=== PATIENT | female | born 1995 | race Caucasian/White ===

== ENCOUNTER 2019-04-03 17:49 | Emergency (ER) | payer SELFPAY ==
[2019-04-03 18:29] VITALS: BP 116/70; PULSE 60; RESP 16; TEMP 36.9; O2SAT 99; BMI 16.5
--- NOTE | 2019-04-03 18:40 | ED_ITS ---
Entered by Tevin Ayala LPN, acting as scribe for Christophe Frias DO HPI - Female Genitourinary General: Chief complaint: Urogenital-Female Stated complaint: abd pain/burning when urination Time Seen by Provider: 04/03/19 18:40 Source: patient Mode of arrival: ambulatory Limitations: no limitations History of Present Illness: HPI Narrative: 24 yo female presents with c/o pain and burning with urination that started about one week ago. She has had blood in her urine. She reports pain in the middle of her lower back and her lower abd. She denies fever. She denies n/v/d. No vaginal d/c. PCP- Albina Hines MD elicited complaint: dysuria Onset (ago): week(s) (onset one week ago) Location of symptoms: suprapubic and low back Severity: mild Consistency: constant Vaginal discharge: none Vaginal bleeding: none Urinary symptoms: Hematuria Exacerbating factors: none Relieving factors: none Associated symptoms: Reports abdominal pain; Deny headache(s), nausea or vaginal discharge Date of Last Menstrual Period: 04/01/19 Review of Systems Const: Denies: fever or chills Eyes: Denies: change in vision or blurry vision ENMT: Denies: painful swallowing, swelling of lips/tongue, bleeding gums, dental pain, Change in hearing, nose bleeds, post nasal drip or facial/sinus pain Card: Denies: chest pain, palpitations, irregular heart rhythm, edema, swelling of feet/ankles, shortness of breath on exertion or shortness of breath when lying down Resp: Denies: shortness of breath, productive cough, non-productive cough or wheezing GI: Reports: abdominal pain; Denies: nausea, vomiting, diarrhea, rectal pain, blood in stool or black tarry stool : Reports: painful urination and blood in urine; Denies: urinary frequency, urinary urgency or vaginal discharge Musc: Reports: back pain; Denies: neck pain, redness or joint warmth Skin/Breast: Denies: rash, itching or redness Neuro: Denies: headache, dizziness, vertigo, confusion or seizure-like activity Psych: Denies: anxiety, visual hallucinations or auditory hallucinations PFSH ED PFSH: Statuses (acute, chronic, etc) shown below reflect problem list status as previously entered and may not be historically accurate Social History Smoking and tobacco status: former smoker Female Reproductive History: Date of last menstrual period: 04/01/19 Physical Exam Const: COMMON NORMALS: alert GENERAL APPEARANCE: well developed ORIENTATION/CONSCIOUSNESS: Yes awake, Yes oriented to person, Yes oriented to place and Yes oriented to time HENMT: COMMON NORMALS: normocephalic, external ears normal, external nose normal and moist oral mucous membranes HEAD & SCALP: normocephalic; no scalp tenderness FACE & SINUS: normal facial exam NOSE: external nose normal and no nasal discharge EXTERNAL EAR: Yes external ears normal MOUTH: tongue normal TEETH & GINGIVA: no abnormal tooth and associated gingiva THROAT: posterior oropharynx normal; no peritonsillar mass Eye: COMMON NORMALS: PERRL, EOMs intact bilaterally and conjunctivae normal EYELID: eyelids normal CONJUNCTIVA: Yes conjunctivae normal PUPIL: Yes PERRL Neck/C-Spine: COMMON NORMALS: full ROM GENERAL: No anterior neck swelling and No tracheal deviation CERVICAL SPINE: Yes normal cervical lordosis, No cervical spine tenderness, No step off deformity, No paracervical muscle tenderness and No paracervical muscle spasm Chest: COMMONS NORMALS: inspection of chest normal CHEST: Yes symmetrical chest wall rise and No tenderness Resp: COMMON NORMALS: clear to auscultation bilaterally EFFORT & INSPECTION: No tachypneic, No respiratory distress, No retractions, No uses accessory muscles and No tracheal deviation AUSCULTATION: clear to auscultation bilaterally, no rhonchi, no wheezes and lung sounds not diminished Cardio: COMMON NORMALS: regular rate and regular rhythm RATE: regular rate RHYTHM: regular rhythm HEART SOUNDS: no murmurs PERIPHERAL PULSES: r adial pulses present GI: INSPECTION: No abdominal distension AUSCULTATION: No hyperactive bowel sounds and No hypoactive bowel sounds PALPATION: Yes tender (mild) Details: LLQ, RLQ and other (suprapubic), No guarding and No rigid PERCUSSION: no dullness to percussion and no tympanic to percussion : COMMON NORMALS: Yes no CVA tenderness BLADDER/KIDNEY EXAM: Yes no CVA tenderness Back/Pelvis: COMMON NORMALS: no CVA tenderness PELVIS: Yes no pain with anterior-posterior compression and Yes no pain with lateral compression Neuro: SENSORIUM/ORIENTATION: Yes alert, Yes oriented to person, Yes oriented to place and Yes oriented to time Psych: COMMON NORMALS: mental status grossly normal and speech normal SPEECH: Yes normal speech Skin: COMMON NORMALS: no rashes or lesions noted GENERAL SKIN EXAM: no rashes or lesions noted Course ED course: 24-year-old non female presents with suprapubic pain, back pain, and blood in her urine. Urinalysis shows 2+ protein, and 2+ blood. There is no stone apparent on CT. There is however, thickening and blurring of the bladder wall consistent with cystitis. This is likely a viral hemorrhagic cystitis. She will be treated symptomatically. She will be covered with antibiotics just in case. Vital Signs: Vital signs: Vital Signs Temperature 98.4 F 04/03/19 18:29 Pulse Rate 60 04/03/19 21:36 Respiratory Rate 16 04/03/19 21:36 Blood Pressure 100/66 04/03/19 21:36 Pulse Oximetry 98 04/03/19 21:36 MDM - Female Lab Data: Labs: Lab Results 04/03/19 04/03/19 Range/Units 18:45 18:45 HCG, Qual Negative (Negative) Urine Color Yellow (Yellow) Urine Appearance Hazy A (CLEAR) Urine pH 7 (5-7) Ur Specific Gravit y 1.005 (1.005-1.030) Urine Protein 1+ H (Negative) Urine Glucose (UA) Norm (Normal) Urine Ketones Negative (Negative) Urine Occult Blood 2+ H (Negative) Urine Nitrate Negative (Negative) Urine Bilirubin Neg (NEGATIVE) Urine Urobilinogen Norm (Negative) mg/dL Ur Leukocyte Ijeoma ase Negative (Negative) Urine RBC 5-10 H (0-2) /hpf Urine WBC 25-40 H (0-5) /hpf Ur Squamous Epith Cells 0-4 H (0-5) Urine Bacteria 2+ H (NONE) Urine Mucus 1+ Discharge Plan Discharge Patient Disposition: Home, Self-Care Clinical Impression: Urinary tract infection Qualifiers: Hematuria presence: with hematuria Condition: Stable Prescriptions: New nitrofurantoin monohyd/m-cryst [Macrobid] 100 mg capsule 100 mg PO BID 7 Days Qty: 14 RF: 0 ketorolac 10 mg tablet 10 mg PO TID PRN (Reason: pain) Qty: 10 RF: 0 Discharge Orders: Discharge Order (Routine); Ordered 04/03/19 Ordered By: Christophe Frias Referrals: Manuel Arvizu, [facility] [Primary Care Provider] - Discharge Diet: Usual diet Discharge Activity: Resume usual activity Patient Instructions: Urinary Tract Infection in Women (ED) Activity Restrictions/Additional Instructions: Return for worsening pain despite treatment, fever greater than 100 despite 2-3 doses of antibiotics, worsening blood in the urine with clots, etc. Return for any other concerning symptoms. Discharge Date/Time: 04/03/19 21:38 Coding Level of Care Code ED Car Shifter for Chg Fwd The documentation recorded by the Jamie mccullough Dani Elizabeth, LPN, accurately reflects the service I personally performed and the decisions made by , Christophe Frias DO Apr 03, 2019 17:49
[2019-04-03 19:22] LABS: Add Urine Microscopic? YES; Bilirubin Urine Neg (NEGATIVE); Blood Urine 2+ (Negative); Glucose Urine UA Norm (Normal); Ketones Urine Negative (Negative); Leukocyte Esterase Urine Negative (Negative); Nitrate Urine Negative (Negative); Protein Urine 1+ (Negative); Specific Gravity, Urine 1.005 (1.005-1.030); Urine Appearance Hazy (CLEAR); Urine Color Yellow (Yellow); Urobilinogen Urine Norm (Negative); pH Urine 7 (5-7)
[2019-04-03 19:23] LABS: HCG Qualitative Urine. Negative (Negative)
[2019-04-03 19:30] LABS: Add Urine Culture? Yes; Bacteria Urine 2+; Mucus Urine 1+; Squamous Epithelial Cell Urine 0-4 (0-5); WBC Urine 25-40 /hpf (0-5)
--- NOTE | 2019-04-03 19:48 | CTR_ITS ---
PROCEDURE INFORMATION: Exam: CT Abdomen And Pelvis Without Contrast Exam date and time: 04/03/2019 7:54 PM Age: 24 years old Clinical indication: Abdominal pain; Acute; Patient HX: Gross hematuria, burning urination TECHNIQUE: Imaging protocol: Computed tomography of the abdomen and pelvis without contrast. Total DLP: 502.35 mGy-cm Radiation optimization: All CT scans at this facility use at least one of these dose optimization techniques: automated exposure control; mA and/or kV adjustment per patient size (includes targeted exams where dose is matched to clinical indication); or iterative reconstruction. COMPARISON: CT abdomen pelvis w con* [id number] 04/22/2018 11:51 PM FINDINGS: Lungs: 5 mm noncalcified nodular density in the lower lobe at the left lung base is stable when compared to the prior study. Liver: Normal. No mass. Gallbladder and bile ducts: Normal. No calcified stones. No ductal dilation. Pancreas: Normal. No ductal dilation. Spleen: Normal. No splenomegaly. Adrenals: Normal. No mass. Kidneys and ureters: Normal. No hydronephrosis. Stomach and bowel: Unremarkable. No obstruction. No mucosal thickening. Appendix: A normal appendix is identified. Intraperitoneal space: There is a physiologic amount of free fluid in the pelvis. Vasculature: Unremarkable. No abdominal aortic aneurysm. Lymph nodes: Unremarkable. No enlarged lymph nodes. Bladder: Bladder wall is thickened and ill-defined. There is stranding in the pericystic fat. Reproductive: There is an IUD in the uterus. Bones/joints: Unremarkable. No acute fracture. Soft tissues: Unremarkable. CT/CT kidney stone [id number] IMPRESSION: 1. Bladder wall is thickened and ill-defined. There is stranding in the pericystic fat. Findings are consistent with cystitis. 2. Stable appearance of the 5 mm noncalcified nodular density in the left lower lobe.If patient does not have known cancer, follow up should be based on clinical information because of the low risk of cancer in this age group. (Jeffery et al., Fleischner Society, 2017) Radiation Dose CTDIVOL = (mGy): DLP = 502.35 (mGy-cm)
[2019-04-03 20:42] VITALS: BP 112/75; PULSE 53; RESP 16; O2SAT 99
--- NOTE | 2019-04-03 20:42 | PC.NURSE ---
pt states ' pain lower back, 5 or 6, position change does not make pain go away.'
[2019-04-03] MEDS: nitrofurantoin SR (BID) 100 mg Capsule PO (21:35)
[2019-04-03 21:36] VITALS: BP 100/66; PULSE 60; RESP 16; O2SAT 98
== END 2019-04-03 21:38 | disposition home or self-care (01) ==
PROVIDERS: Emergency Provider Emergency Medicine; Family Provider Nurse Practitioner; PCP Nurse Practitioner
DX: N39.0 Urinary tract infection, site not specified (principal); R31.9 Hematuria, unspecified; Z87.891 Personal history of nicotine dependence
CPT/HCPCS: 74176; 81003; 81025; 87077; 87086; 87186; 99282

== ENCOUNTER → 2019-04-26 16:14 | Outpatient (BNVA) | payer MEDICAID, SELFPAY | PROVIDERS: Family Provider Nurse Practitioner; PCP Nurse Practitioner; Visit Provider Nurse Practitioner Family | DX: Z32.01 Encounter for pregnancy test, result positive (principal) | CPT/HCPCS: 81025 ==

== ENCOUNTER 2019-05-01 11:04 | Emergency (ER) | payer MEDICAID, SELFPAY ==
[2019-05-01 11:22] VITALS: BP 131/61; PULSE 78; RESP 16; TEMP 36.8; O2SAT 99; BMI 17.5
--- NOTE | 2019-05-01 12:40 | ED_ITS ---
HPI - Female Genitourinary General: Chief complaint: Urogenital-Female Stated complaint: PAIN WHEN PEE Time Seen by Provider: 05/01/19 12:40 Source: patient Mode of arrival: ambulatory Limitations: no limitations History of Present Illness: HPI Narrative: Patient comes in with burning on urination for 1 week. Patient reports being evaluated in the urgent care clinic and cleared of any infection. Patient reports that although they told her she did not have a urinary tract infection on Friday she continues to have discomfort with urination. Patient is with her last period being March. Patient appears well. Patient appears in no pain. Date of Last Menstrual Period: 04/01/19 Review of Systems General: Reports: 10 or more systems reviewed and unremarkable except in HPI and below : Reports: painful urination PFSH ED PFSH: Statuses (acute, chronic, etc) shown below reflect problem list status as previously entered and may not be historically accurate Social History Smoking and tobacco status: former smoker Quit status (tobacco): has quit using tobacco Year quit tobacco: 2018 Former quit date comment: Quit age 24. Most smoked 1/2 ppd. Started age 18. Alcohol intake: never Additional social history: well balanced diet Female Reproductive History: Date of last menstrual period: 04/01/19 Para: 2 Spontaneous abortions: Yes (1) Physical Exam Const: COMMON NORMALS: no apparent distress and oriented x3 GENERAL APPEARANCE: cooperative HENMT: COMMON NORMALS: normocephalic, external ears normal, EAC's normal, TM's normal bilaterally and external nose normal HEAD & SCALP: normal to inspection and normocephalic FACE & SINUS: normal facial exam NOSE: external nose normal GENERAL EAR: hearing not grossly impaired EXTERNAL EAR: Yes external ears normal EXTERNAL AUDITORY CANAL: EAC's normal TYMPANIC MEMBRANE: TM's normal bilaterally MOUTH: oral and palatal mucosa normal THROAT: posterior oropharynx normal Eye: COMMON NORMALS: PERRL and EOMs intact bilaterally PUPIL: Yes PERRL Neck/C-Spine: COMMON NORMALS: full ROM and no lymphadenopathy Lymph: LYMPHATIC: no lymphedema noted Chest: COMMONS NORMALS: inspection of chest normal and palpation of chest normal Resp: COMMON NORMALS: normal respiratory effort and clear to auscultation bilaterally AUSCULTATION: clear to auscultation bilaterally Cardio: COMMON NORMALS: regular rate and regular rhythm RATE: regular rate RHYTHM: regular rhythm GI: COMMON NORMALS: normal to inspection, nondistended, normoactive bowel sounds and non-tender : COMMON NORMALS: Yes no CVA tenderness BLADDER/KIDNEY EXAM: Yes no CVA tenderness Back/Pelvis: COMMON NORMALS: no CVA tenderness and thoracic and lumbar spine normal to inspection Extremity: COMMON NORMALS: normal to inspection GENERAL: No edema Neuro: COMMON NORMALS: oriented x3, moves all extremities and no focal motor deficits Psych: COMMON NORMALS: mental status grossly normal and cooperative Skin: COMMON NORMALS: no rashes or lesions noted GENERAL SKIN EXAM: no rashes or lesions noted Course Vital Signs: Vital signs: Vital Signs Temperature 98.2 F 05/01/19 11:22 Pulse Rate 68 05/01/19 14:44 Respiratory Rate 18 05/01/19 14:44 Blood Pressure 106/71 05/01/19 14:44 Pulse Oximetry 99 05/01/19 14:44 MDM - Female MDM Narrative: Medical decision making narrative: Patient comes in with painful urination. Exam notes abdomen soft nontender. No CVA tenderness. Respirations are even lungs are clear to auscultation. Vital signs are stable without fever. Differential diagnosis includes dysuria, urinary tract infection, urethritis, STI, vaginitis. Urine was positive for leukocytes. We will go ahead and treat with Keflex 500 mg twice a day for 7 days. Encourage plenty of fluids and follow-up with primary care in 1 week for recheck. Recommend return to the ER for high fever or new concerns. Lab Data: Labs: Lab Results 05/01/19 Range/Units 11:20 Urine Color Straw (Yellow) Urine Appearance Sl hazy (CLEAR) Urine pH 7 (5-7) Ur Specific Gravit y 1.005 (1.005-1.030) Urine Protein Neg (Negative) Urine Glucose (UA) Norm (Normal) Urine Ketones Negative (Negative) Urine Occult Blood Neg (Negative) Urine Nitrate Negative (Negative) Urine Bilirubin Neg (NEGATIVE) Urine Urobilinogen Norm (Negative) mg/dL Ur Leukocyte Ijeoma ase 1+ H (Negative) Urine RBC 0-4 H (0-2) /hpf Urine WBC 40-55 H (0-5) /hpf Ur Squamous Epith Cells 10-15 H (0-5) Urine Bacteria 1+ H (NONE) Urine Mucus Trace Discharge Plan Discharge Patient Disposition: Home, Self-Care Clinical Impression: Urinary tract infection Qualifiers: Urinary tract infection type: acute cystitis Hematuria presence: without hematuria Qualified Code(s): N30.00 - Acute cystitis without hematuria Condition: Stable Prescriptions: New cephalexin 500 mg capsule 500 mg PO BID 7 Days Qty: 14 RF: 0 Discontinued nitrofurantoin monohyd/m-cryst [Macrobid] 100 mg capsule 100 mg PO BID RF: 0 Discharge Orders: Discharge Order (Routine); Ordered 05/01/19 Ordered By: Eber Gregorio Referrals: Manuel Arvizu, [employer] [facility] [Primary Care Provider] - Discharge Diet: Usual diet Discharge Activity: Resume usual activity Patient Instructions: Urinary Tract Infection in Women (ED) Activity Restrictions/Additional Instructions: Drink plenty of water Medications as directed Follow-up with primary care in three days for recheck Return to ER for high fever or new concerns Discharge Date/Time: 05/01/19 14:45 Coding Level of Care Code ED Professional Services Specialist for Corrinag Fwd Exam Problem Focused
[2019-05-01 13:52] LABS: Add Urine Microscopic? YES; Bilirubin Urine Neg (NEGATIVE); Blood Urine Neg (Negative); Glucose Urine UA Norm (Normal); Ketones Urine Negative (Negative); Leukocyte Esterase Urine 1+ (Negative); Nitrate Urine Negative (Negative); Protein Urine Neg (Negative); Specific Gravity, Urine 1.005 (1.005-1.030); Urine Appearance SL Hazy (CLEAR); Urine Color Straw (Yellow); Urobilinogen Urine Norm (Negative); pH Urine 7 (5-7)
[2019-05-01 13:55] LABS: Mucus Urine TRACE
[2019-05-01 13:56] LABS: Bacteria Urine 1+; RBC Urine 0-4 /hpf (0-2)
[2019-05-01 13:57] LABS: Add Urine Culture? Yes; WBC Urine 40-55 /hpf (0-5)
[2019-05-01 14:44] VITALS: BP 106/71; PULSE 68; RESP 18; O2SAT 99
== END 2019-05-01 14:45 | disposition home or self-care (01) ==
PROVIDERS: Emergency Provider Nurse Practitioner Family; Family Provider Nurse Practitioner; PCP Nurse Practitioner
DX: N30.00 Acute cystitis without hematuria (principal); Z87.891 Personal history of nicotine dependence
CPT/HCPCS: 81001; 87077; 87086; 87186; 99282; A9270

== ENCOUNTER 2019-07-03 10:34 | Emergency (ER) | payer MEDICAID, SELFPAY ==
--- NOTE | 2019-07-03 10:38 | ED_ITS ---
HPI - General: Chief complaint: OB/Uterine Contractions Stated complaint: 13 WEEKS PREG WITH CRAMPING Time Seen by Provider: 07/03/19 10:38 Source: patient Mode of arrival: ambulatory Limitations: no limitations History of Present Illness: HPI Narrative: Patient is a 24-year-old female Ab1 female here at approximately 14 weeks gestation complaining of blood-ting ed discharge that she noticed this morning. Patient reports some abdominal cramping beginning yesterday but states upon arrival this is actually improved. Patient states she has had a lot of discharge over the past 6 weeks. She denies new sexual partners or concern for STDs. She remembers having lots of discharge on previous pregnancies. She has not had any vaginal itching. She contacted her OB office (Dr. Yanes) a few days ago thinking she might have a yeast infection and was told to begin Monistat cream. Patient has not been running fevers. No nausea/vomiting. MD Complaint: vaginal bleeding and vaginal discharge Vaginal bleeding: light Date of Last Menstrual Period: 04/01/19 Patient : Yes Associated symptoms: Reports vaginal discharge; Deny abdominal pain, dysuria, headache(s), malaise, nausea, syncope or vomiting Review of Systems Const: Denies: fever, chills, body aches, fatigue or malaise Card: Denies: chest pain, palpitations, irregular heart rhythm, edema, swelling of feet/ankles, lightheadedness, syncope, pre-syncope, shortness of breath on exertion or shortness of breath when lying down Resp: Denies: shortness of breath, productive cough, coughing up blood or chest congestion GI: Denies: abdominal pain, nausea, vomiting, diarrhea or constipation : Reports: vaginal bleeding (blood tinged discharge) and vaginal discharge; Denies: flank pain, difficulty urinating, painful urination, urinary frequency, urinary urgency, urinary hesitancy, blood in urine, genital lesion, genital itching, vaginal odor or pelvic pain Musc: Denies: neck pain or back pain Skin/Breast: Denies: rash Neuro: Denies: headache, numbness in extremities, weakness in extremities or changes in sensation PFSH ED PFSH: Social History Smoking and tobacco status: former smoker Quit status (tobacco): has quit using tobacco Year quit tobacco: 2019 Former quit date comment: Quit age 24. Most smoked 1/2 ppd. Started age 18. Alcohol intake: never Additional social history: well balanced diet Female Reproductive History: Date of last menstrual period: 04/01/19 Para: 2 Spontaneous abortions: Yes (1) Physical Exam Const: COMMON NORMALS: no apparent distress, average body habitus, oriented x3, no limitations, healthy appearing, alert and well nourished Resp: COMMON NORMALS: normal respiratory effort and clear to auscultation bilaterally AUSCULTATION: clear to auscultation bilaterally Cardio: COMMON NORMALS: regular rate and regular rhythm RATE: regular rate RHYTHM: regular rhythm GI: COMMON NORMALS: normal to inspection, nondistended, normoactive bowel sounds, soft to palpation, non-tender, no hepatosplenomegaly and no masses PALPATION: Yes soft and Yes no hepatosplenomegaly OTHER: gravid uterus : COMMON NORMALS: Yes no CVA tenderness and Yes bimanual exam normal BLADDER/KIDNEY EXAM: Yes no CVA tenderness EXTERNAL FEMALE EXAM: Yes normal appearance of the urethra SPECULUM EXAM - VAGINA: Yes vaginal discharge (moderate amount; non odorous; cervix is not erythematous or friable ) Vaginal discharge present: white and other (brown) SPECULUM EXAM - CERVIX: Yes cervical os closed and No cervical tenderness BIMANUAL EXAM - VAGINA & UTERUS: Yes normal bimanual exam, No cervical tenderness and Yes uterine size normal Back/Pelvis: COMMON NORMALS: no CVA tenderness Neuro: COMMON NORMALS: oriented x3 SENSORIUM/ORIENTATION: Yes alert Course Vital Signs: Vital signs: Vital Signs Temperature 98.2 F 07/03/19 10:41 Pulse Rate 90 07/03/19 12:00 Respiratory Rate 16 07/03/19 10:41 Blood Pressure 115/72 07/03/19 12:00 Pulse Oximetry 99 07/03/19 12:00 MDM - OB/Uterine Contractions MDM Narrative: Medical decision making narrative: pts US showing live IUP at 14 wks; she has no cervicitis on her exam; does have some yeast on her wet prep along with white discharge so we will have her continue the Monistat for a full treatment course; recommend she follow up with OB for further instructions Lab Data: Labs: Lab Results 04/11/20 04/11/20 04/11/20 Range/Units 11:06 11:06 11:06 WBC 10.9 H (4.0-10.0) 10^3/ uL RBC 4.57 (4.1-5.3) 10^6/u L Hgb 13.3 (11.5-15.3) g/dL Hct 39.0 (37.0-47.0) % MCV 85.3 (81-99) fL MCH 29.1 (28.0-34.0) pg MCHC 34.1 (30.0-36.0) g/dL RDW 12.7 (12.1-15.1) % Plt Count 268 (130-400) 10^3/c mm MPV 10.7 H (7.4-10.4) fL Neut % (Auto) 78.3 % Lymph % (Auto) 16.0 % [place] % (Auto) 3.7 % Eos % (Auto) 1.2 % Baso % (Auto) 0.5 % Neut # (Auto) 8.5 H (1.8-7.7) 10^3/u L Lymph # (Auto) 1.7 (0.8-4.8) 10^3/u L [place] # (Auto) 0.4 (0.2-0.9) 10^3/u L Eos # (Auto) 0.1 (0.0-0.8) 10^3/u L Baso # (Auto) 0.1 (0.0-0.1) 10^3/u L Nucleated RBC % (a uto) 0 % Nucleated RBCs # 0.0 /100WBC Sodium 132 L (136-145) mmol/L Potassium 3.7 (3.5-5.1) mmol/L Chloride 100 (98-107) mmol/L Carbon Dioxide 22 (22-29) mmol/L Anion Gap 13.7 (5-19) BUN 6 (6-20) mg/dL Creatinine 0.4 L (0.5-0.9) mg/dL GFR Calculation 196.1 H (90-130) mL/min Glucose 108 (65-115) mg/dL Calculated Osmolal ity 270 L (285-295) mOsm/k g Calcium 10.0 (8.5-10.5) mg/dL Total Bilirubin 0.4 (0.15-1.2) mg/dL AST 17 (0-32) U/L ALT 14 (0-33) U/L Alkaline Phosphata se 51 (35-105) IU/L Total Protein 7.1 (6.6-8.7) g/dL Albumin 4.1 (3.5-5.2) g/dL Globulin 3.0 (1.3-4.6) g/dL Ser , [place] 85[address].00 mIU/mL Urine Color (Yellow) Urine Appearance (CLEAR) Urine pH (5-7) Ur Specific Gravit y (1.005-1.030) Urine Protein (Negative) Urine Glucose (UA) (Normal) Urine Ketones (Negative) Urine Blood (Negative) Urine Nitrate (Negative) Urine Bilirubin (NEGATIVE) Prot Sulfosalicyli c Acd (Negative) Urine Urobilinogen (Negative) mg/dL Ur Leukocyte [place]jeoma ase (Negative) Urine RBC (0-2) /hpf Urine WBC (0-5) /hpf Ur Squamous Epith Cells (0-5) Amorphous Sediment Urine Bacteria (NONE) Blood Type A Positive Rho(D) Type Positive 07/03/19 Range/Units 12:02 WBC (4.0-10.0) 10^3/ uL RBC (4.1-5.3) 10^6/u L Hgb (11.5-15.3) g/dL Hct (37.0-47.0) % MCV (81-99) fL MCH (28.0-34.0) pg MCHC (30.0-36.0) g/dL RDW (12.1-15.1) % Plt Count (130-400) 10^3/c mm MPV (7.4-10.4) fL Neut % (Auto) % Lymph % (Auto) % [place] % (Auto) % Eos % (Auto) % Baso % (Auto) % Neut # (Auto) (1.8-7.7) 10^3/u L Lymph # (Auto) (0.8-4.8) 10^3/u L [place] # (Auto) (0.2-0.9) 10^3/u L Eos # (Auto) (0.0-0.8) 10^3/u L Baso # (Auto) (0.0-0.1) 10^3/u L Nucleated RBC % (a uto) % Nucleated RBCs # /100WBC Sodium (136-145) mmol/L Potassium (3.5-5.1) mmol/L Chloride (98-107) mmol/L Carbon Dioxide (22-29) mmol/L Anion Gap (5-19) BUN (6-20) mg/dL Creatinine (0.5-0.9) mg/dL GFR Calculation (90-130) mL/min Glucose (65-115) mg/dL Calculated Osmolal ity (285-295) mOsm/k g Calcium (8.5-10.5) mg/dL Total Bilirubin (0.15-1.2) mg/dL AST (0-32) U/L ALT (0-33) U/L Alkaline Phosphata se (35-105) IU/L Total Protein (6.6-8.7) g/dL Albumin (3.5-5.2) g/dL Globulin (1.3-4.6) g/dL Ser , Alex i-Qnt mIU/mL Urine Color Yellow (Yellow) Urine Appearance Hazy A (CLEAR) Urine pH 8 H (5-7) Ur Specific Gravit y 1.015 (1.005-1.030) Urine Protein Neg (Negative) Urine Glucose (UA) Norm (Normal) Urine Ketones Negative (Negative) Urine Blood Neg (Negative) Urine Nitrate Negative (Negative) Urine Bilirubin Neg (NEGATIVE) Prot Sulfosalicyli c Acd Negative (Negative) Urine Urobilinogen Norm (Negative) mg/dL Ur Leukocyte Ijeoma ase Negative (Negative) Urine RBC None (0-2) /hpf Urine WBC Rare (0-5) /hpf Ur Squamous Epith Cells 0-4 H (0-5) Amorphous Sediment 2+ Urine Bacteria Trace (NONE) Blood Type Rho(D) Type Imaging Data^: US OB: Radiologist's impression: [address] [address] Ultrasound Report Signed Patient: Monica Quezada Unit #: [id number] : [id number] Age/Sex: 24 / F ADM Date: 07/03/19 Loc: ER Room/Bed: Attending Dr: Ordering Provider/Ordering MD: Blanca Fermin Date of Service: 07/03/19 Procedure(s): US OB <= 14 weeks fetus [id number] Accession Number(s): [id number] Report Number: [id number] PROCEDURE INFORMATION: Exam: US First Trimester, Transabdominal and US , Transvaginal Exam date and time: 07/03/2019 11:21 AM Age: 24 years old Clinical indication: complicated by abdominal or pelvic pain; Left lower quadrant; First trimester; Gestational age or lmp: 13 weeks 3 days by lmp; ; Additional info: Bleeding/cramping TECHNIQUE: Imaging protocol: Real-time transabdominal obstetrical ultrasound of the maternal pelvis and a first trimester , less than 14 weeks 0 days, with image documentation. Transvaginal imaging was used for better evaluation of the fetus and adnexa. COMPARISON: [facility] Limited [id number] 02/08/2016 10:17 PM FINDINGS: GESTATION: Gestation: Single live intrauterine gestation. Heart rate: heart rate: 150 bpm. Placenta: Unremarkable. No subchorionic bleed. Amniotic fluid: Amniotic is normal for gestational age. BIOMETRY: Estimated gestational age: Single live intrauterine gestation with the estimated gestational age of approximately 14 weeks by ultrasound. Estimated due date: Estimated due date 01-01-20. MATERNAL: Uterus: Uterus 12.9 x 7.2 x 10.2 cm. Cervix: Cervix appears unremarkable Right adnexa: Unremarkable. Left adnexa: Unremarkable. Intraperitoneal: No free fluid Other findings: Right and left ovaries not visualized US/US OB <= 14 weeks fetus [id number] IMPRESSION: 1. Single live intrauterine gestation with the estimated gestational age of approximately 14 weeks by ultrasound. 2. heart rate: 150 bpm. Dictated By: Juanjo Jarvis MD Signed By: Juanjo Jarvis MD Signed Date/Time: 07/03/19 1138 DD/ 1136 Discharge Plan Discharge Patient Disposition: Home, Self-Care Clinical Impression: Vaginal yeast infection Condition: Stable Prescriptions: No Action prenat.vits,viji,ibd-xouy-zugak Tablet 1 tab PO DAILY RF: 0 Discharge Orders: Discharge Order (Routine); Ordered 07/03/19 Ordered By: Blanca Fermin Referrals: Manuel Arvizu, [facility] C[facility] PASTOR-C [Primary Care Provider] - Patient Instructions: Vulvovaginal Candidiasis (ED), Yeast Infection Activity Restrictions/Additional Instructions: As discussed continue the Monistat treatment course until finished. Please fol low-up with your OB provider for further instructions if discharge does not begin to improve. Coding Level of Care Code ED Brass Molder for Corrinag Fwd Exam Detailed
[2019-07-03 10:41] VITALS: BP 155/74; PULSE 95; RESP 16; TEMP 36.8; O2SAT 100; BMI 16.8
--- NOTE | 2019-07-03 10:48 | USR_ITS ---
PROCEDURE INFORMATION: Exam: US First Trimester, Transabdominal and US , Transvaginal Exam date and time: 07/03/2019 11:21 AM Age: 24 years old Clinical indication: complicated by abdominal or pelvic pain; Left lower quadrant; First trimester; Gestational age or lmp: 13 weeks 3 days by lmp; ; Additional info: Bleeding/cramping TECHNIQUE: Imaging protocol: Real-time transabdominal obstetrical ultrasound of the maternal pelvis and a first trimester , less than 14 weeks 0 days, with image documentation. Transvaginal imaging was used for better evaluation of the fetus and adnexa. COMPARISON: [facility] Limited [id number] 02/08/2016 10:17 PM FINDINGS: GESTATION: Gestation: Single live intrauterine gestation. Heart rate: heart rate: 150 bpm. Placenta: Unremarkable. No subchorionic bleed. Amniotic fluid: Amniotic is normal for gestational age. BIOMETRY: Estimated gestational age: Single live intrauterine gestation with the estimated gestational age of approximately 14 weeks by ultrasound. Estimated due date: Estimated due date 01-01-20. MATERNAL: Uterus: Uterus 12.9 x 7.2 x 10.2 cm. Cervix: Cervix appears unremarkable Right adnexa: Unremarkable. Left adnexa: Unremarkable. Intraperitoneal: No free fluid Other findings: Right and left ovaries not visualized US/US OB <= 14 weeks fetus [id number] IMPRESSION: 1. Single live intrauterine gestation with the estimated gestational age of approximately 14 weeks by ultrasound. 2. heart rate: 150 bpm.
[2019-07-03 11:06] VITALS: O2SAT 99
--- NOTE | 2019-07-03 11:08 | PC.NURSE ---
portable ultrasound at bedside
[2019-07-03 11:13] LABS: Basophils # 0.1 10^3/uL (0.0-0.1); Basophils % 0.5 %; Eosinophils # 0.1 10^3/uL (0.0-0.8); Eosinophils % 1.2 %; Hemoglobin 13.3 g/dL (11.5-15.3); Lymphocytes # 1.7 10^3/uL (0.8-4.8); Mean Corpuscular HGB Conc 34.1 g/dL (30.0-36.0); Mean Corpuscular Hemoglobin 29.1 pg (28.0-34.0); Mean Corpuscular Volume 85.3 fL (81-99); Mean Platelet Volume 10.7 fL (7.4-10.4); Monocytes # 0.4 10^3/uL (0.2-0.9); Monocytes % 3.7 %; Neutrophils # 8.5 10^3/uL (1.8-7.7); Neutrophils % 78.3 %; Nucleated Red Blood Cells % 0 %; Platelet Count 268 10^3/cmm (130-400); Red Blood Count 4.57 10^6/uL (4.1-5.3); Red Cell Distribution Width 12.7 % (12.1-15.1); White Blood Count 10.9 10^3/uL (4.0-10.0)
[2019-07-03 11:49] LABS: Alanine Aminotransferase 14 U/L (0-33); Albumin Level 4.1 g/dL (3.5-5.2); Alkaline Phosphatase 51 IU/L (35-105); Anion Gap 13.7 (5-19); Aspartate Amino Transferase 17 U/L (0-32); Blood Urea Nitrogen 6 mg/dL (6-20); Carbon Dioxide 22 mmol/L (22-29); Chloride 100 mmol/L (98-107); Glomerular Filtration Rate 196.1 mL/min (90-130); Glucose 108 mg/dL (65-115); Osmolality Calculated 270 mOsm/kg (285-295); Potassium 3.7 mmol/L (3.5-5.1); Sodium 132 mmol/L (136-145); Total Bilirubin 0.4 mg/dL (0.15-1.2); Total Protein 7.1 g/dL (6.6-8.7)
[2019-07-03 12:00] VITALS: BP 115/72; PULSE 90; O2SAT 99
[2019-07-03 12:31] LABS: Add Urine Microscopic? YES; Amorphous Sediment Urine 2+; Bacteria Urine TRACE; Bilirubin Urine Neg (NEGATIVE); Blood Urine Neg (Negative); Glucose Urine UA Norm (Normal); Ketones Urine Negative (Negative); Leukocyte Esterase Urine Negative (Negative); Nitrate Urine Negative (Negative); Protein Urine Neg (Negative); Specific Gravity, Urine 1.015 (1.005-1.030); Squamous Epithelial Cell Urine 0-4 (0-5); Sulfosalicylic Acid Urine Negative (Negative); Urine Appearance Hazy (CLEAR); Urine Color Yellow (Yellow); Urobilinogen Urine Norm (Negative); WBC Urine RARE /hpf (0-5); pH Urine 8 (5-7)
[2019-07-03 12:32] LABS: Add Urine Culture? No
[2019-07-03 14:01] VITALS: BP 140/69; PULSE 88; RESP 16; O2SAT 100
== END 2019-07-03 14:01 | disposition home or self-care (01) ==
PROVIDERS: Emergency Provider Physician Assistant; Family Provider Nurse Practitioner; PCP Nurse Practitioner
DX: O98.811 Other maternal infectious and parasitic diseases complicating pregnancy, first trimester (principal); Z3A.13 13 weeks gestation of pregnancy; B37.3 Candidiasis of vulva and vagina
CPT/HCPCS: 12345; 36415; 76801; 80053; 81001; 84702; 85025; 86900; 87210; 87491; 87591; 87661; 99283; A9270

== ENCOUNTER 2019-11-29 19:20 | Outpatient (CLI) | payer MEDICAID, SELFPAY ==
[2019-11-29 19:40] VITALS: TEMP 36.9
[2019-11-29 20:20] VITALS: BMI 22.4
[2019-11-29 20:56] LABS: Add Urine Microscopic? YES; Bilirubin Urine Neg (NEGATIVE); Blood Urine Neg (Negative); Glucose Urine UA Norm (Normal); Ketones Urine Negative (Negative); Leukocyte Esterase Urine 2+ (Negative); Nitrate Urine Negative (Negative); Protein Urine Neg (Negative); Urine Color Yellow (Yellow); Urobilinogen Urine 1 mg/dL (Negative); pH Urine 7 (5-7)
[2019-11-29 20:57] LABS: RBC Urine 0-4 /hpf (0-2)
[2019-11-29 20:58] LABS: Add Urine Culture? No; Bacteria Urine TRACE; Mucus Urine 2+; Squamous Epithelial Cell Urine TOO NUMEROUS TO CNT (0-5); WBC Urine 15-25 /hpf (0-5)
[2019-11-29 21:00] VITALS: BP 109/60; RESP 16; TEMP 36.6
[2019-11-29 21:03] VITALS: BP 109/60; PULSE 69
[2019-11-29 21:05] VITALS: BP 109/60; PULSE 69
== END 2019-11-29 21:08 | disposition home or self-care (01) ==
LOC: OPOB 20:16 → OBGYN 21:05
PROVIDERS: PCP Nurse Practitioner; Visit Provider Family Medicine
DX: O26.899 Other specified pregnancy related conditions, unspecified trimester (principal); R42 Dizziness and giddiness; R10.2 Pelvic and perineal pain; Z3A.00 Weeks of gestation of pregnancy not specified
CPT/HCPCS: 59025; 81001; 99211

== ENCOUNTER → 2019-12-28 16:08 | Outpatient (BNVA) | payer MEDICAID, SELFPAY | PROVIDERS: PCP Nurse Practitioner; Visit Provider Nurse Practitioner Family | DX: Z11.59 Encounter for screening for other viral diseases (principal); Z20.828 Contact with and (suspected) exposure to other viral communicable diseases | CPT/HCPCS: 87635 ==

== ENCOUNTER 2020-01-03 03:37 | Inpatient (IN) | payer MEDICAID, SELFPAY ==
[2020-01-03] VITALS (165 sets, daily range): BP systolic 0–150; BP diastolic 0–98; PULSE 66–141; RESP 16–19; TEMP 36.7–37.4; O2SAT 88–100; BMI 23.0
[2020-01-03] MEDS: lactated ringers 1,000 ML 999 ML IV (04:10)
[2020-01-03] MEDS: fentaNYL 50 mcg/mL INJ 2mL IV (04:28)
[2020-01-03 04:33] LABS: Basophils # 0.1 10^3/uL (0.0-0.1); Basophils % 0.4 %; Eosinophils # 0.1 10^3/uL (0.0-0.8); Eosinophils % 0.9 %; Hematocrit 39.6 % (37.0-47.0); Hemoglobin 13.3 g/dL (11.5-15.3); Lymphocytes # 2.6 10^3/uL (0.8-4.8); Lymphocytes % 17.9 %; Mean Corpuscular HGB Conc 33.6 g/dL (30.0-36.0); Mean Corpuscular Hemoglobin 29.6 pg (28.0-34.0); Mean Corpuscular Volume 88.2 fL (81-99); Mean Platelet Volume 11.9 fL (7.4-10.4); Monocytes # 0.8 10^3/uL (0.2-0.9); Monocytes % 5.7 %; Neutrophils % 74.7 %; Nucleated Red Blood Cells % 0 %; Platelet Count 306 10^3/cmm (130-400); Red Blood Count 4.49 10^6/uL (4.1-5.3); Red Cell Distribution Width 13.2 % (12.1-15.1); White Blood Count 14.7 10^3/uL (4.0-10.0)
--- NOTE | 2020-01-03 05:40 | P.ANESASSM_ITS ---
Pre-Anesthetic Assessment Pre-Anesthetic Assessment: Height/Weight: Height 1.57 m Weight 57.153 kg Pulse Resp BP Pulse Ox 79 16 121/71 97 01/03/20 05:38 01/03/20 04:28 01/03/20 05:38 01/03/20 05:38 Preop Diagnosis: IUP Proposed Procedure: Lumbar Labor Epidural Was Beta Chika taken within 24 hours: N/A Social: Social History: No alcohol and No tobacco Exam: Pre-Anes Outpt Exam: alert, oriented x 3, clear to auscultation bilaterally and regular rate & rhythm Airway: Submandibular: WNL Cervical ROM: WNL MP: 2 History/ROS: No significant history except as noted and No significant complaints Pulmonary: Pulmonary: None reported CV/HEM: CV/HEM: None reported : : None reported Hepatic: Hepatic: None reported GI: GI: GERD Metabolic: Metabolic: None reported Musc/skel: Musc/skel: None reported Neuropsych: Neuropsych: None reported Anesthetic Plan: ASA status: 2 Anesthesia: Regional (specify below) (epidural) Meds/Allergies Current Medications: Current Medications Generic Name Dose Route Start Last Admin Trade Name Freq PRN Reason Stop Dose Admin Fentanyl 25 - 100 mcg 01/03/20 03:10 01/03/20 04:28 Sublimaze IV 25 mcg Q1H PRN Administration SEVERE PAIN Ropivacaine 200 mg in 100 mls @ 6 mls/hr 01/03/20 03:15 01/03/20 05:30 Naropin Premix EPIDURAL 6 mls/hr .[id number] CRYS Administration Lactated Ringer's 1,000 mls @ 999 m ls/hr 01/03/20 04:12 01/03/20 04:10 Lactated Ringers IV 999 mls/hr .Q1H1M PRN Administration See label comment s PFSH Anesthesia PFSH: Medical History Depression with anxiety Family History Grandmother Diabetes maternal Breast cancer maternal Father Hypercholesteremia Social History Smoking and tobacco status: former smoker Quit status (tobacco): has quit using tobacco Year quit tobacco: 2019 Former quit date comment: Quit age 24. Most smoked 1/2 ppd. Started age 18. Alcohol intake: never Additional social history: well balanced diet Female Reproductive History: Date of last menstrual period: 03/31/19 : 3 Para: 2 Spontaneous abortions: Yes (1) Data Anesthesia CBC & Chem 7: 01/03/20 03:25 Other Labs: Laboratory Results - last 48 hr 01/03/20 03:25 WBC 14.7 H RBC 4.49 Hgb 13.3 Hct 39.6 MCV 88.2 MCH 29.6 MCHC 33.6 RDW 13.2 Plt Count 306 MPV 11.9 H Neut % (Auto) 74.7 Lymph % (Auto) 17.9 [place] % (Auto) 5.7 Eos % (Auto) 0.9 Baso % (Auto) 0.4 Neut # (Auto) 11.00 H Lymph # (Auto) 2.6 [place] # (Auto) 0.8 Eos # (Auto) 0.1 Baso # (Auto) 0.1 Nucleated RBC % (auto) 0 Nucleated RBCs # 0.0 Cardiac Studies: No Data to Display Anesthesia Procedures Epidural: Time Out Performed: Yes Consents Signed: Procedure Consent Consent: from patient, risks and benefits reviewed and patient agrees to proceed Lumbar Level: L3-L4 Epidural position: sitting Epidural procedure: sterile prep of area, 1% lidocaine to numb the area (5), 18 g needle, negative for paresthesia passed, neg for paresthesia, test dose given, 1.5% xylocaine 1:200k epi (5), 0.2% Ropivacaine bolus ml (5), placed PCEA (5cc q10min x 3), no systemic response, sterile dressing applied, L.U.D. no apparent complications and 0.2% Ropiavacaine @ mls/hr (11) Additional Comments: Called to OB for epidural placement, pt evaluated and assessed for placement and explained procedure. Labs reviewed. Pt agrees to proceed. placed to 5cm in space and tolerated well. Bolused with epidural pump and VSS throughout per nursing chart. Last BP 104/70. Pain much improved.
[2020-01-03] MEDS: dextrose 5%-lactated ringers 1,000 ML 125 ML IV ×2 (05:58→13:37)
[2020-01-03] MEDS: ondansetron 2 mg/ML SDV 2 mL 4 MG IVP (07:40)
--- NOTE | 2020-01-03 17:06 | PM.DELIVERY ---
Delivery Note: Date of delivery: January 03, 2020 Pre-Delivery Course: The patient is a 24-year-old 3 who presented to the hospital in active labor. An amniotomy was performed. She then progressed to complete and was able to labor down prior to pushing. The baby's head was at a +1 to +2 station at the time of pushing was initiated. heart tones were generally category 1 with occasional category 2 tracings during her labor process. Her been unremarkable. Her labs have been unremarkable. Her GBS was negative. Her glucose screen was negative. Her blood type is a positive. The remainder of her labs were within normal limits. Delivery: DELIVERY: The patient progressed to complete without difficulty. She delivered a female with a weight of 7 pounds 0 ounces with Apgars of 8, 9. The baby was delivered from the DEMETRI position. The baby's mouth and nose were suctioned at the site of the perineum. The baby was then completely delivered and placed on the mother's abdomen. The cord was then clamped and cut. There was a nuchal cord x1 which was delivered over the body. Moderate meconium was noted. The placenta and 3 vessel cord were delivered intact shortly thereafter. The perineum and vaginal vault were carefully examined. A first-degree a posterior midline laceration which extended onto the skin of the perineum was noted. It was repaired with 3-0 Vicryl in the usual fashion.. Both the mother and the baby were in stable condition. Post-Delivery Status: Stable A&P Assessment and plan (1) 39 weeks gestation of : Status: Acute (2) Spontaneous vaginal delivery: Status: Acute Coding Level of Care Code Acute Firewall Administrator for Chg Fwd Diagnoses 39 weeks gestation of Z3A.39 Spontaneous vaginal delivery O80
[2020-01-03] MEDS: HYDROcodone-acetaminophen 5-325 mg Tablet PO (20:07)
[2020-01-03] MEDS: ibuprofen 800 mg tablet PO (20:08)
[2020-01-04] VITALS (7 sets, daily range): BP systolic 99–126; BP diastolic 62–83; PULSE 76–89; RESP 16–19; TEMP 36.5–36.8; O2SAT 97–98
[2020-01-04] MEDS: HYDROcodone-acetaminophen 5-325 mg Tablet PO (05:33)
[2020-01-04 07:04] LABS: Hematocrit 35.9 % (37.0-47.0); Hemoglobin 12.1 g/dL (11.5-15.3); Mean Corpuscular HGB Conc 33.7 g/dL (30.0-36.0); Mean Corpuscular Volume 88.9 fL (81-99); Mean Platelet Volume 11.6 fL (7.4-10.4); Platelet Count 278 10^3/cmm (130-400); Red Blood Count 4.04 10^6/uL (4.1-5.3); Red Cell Distribution Width 13.3 % (12.1-15.1); White Blood Count 26.2 10^3/uL (4.0-10.0)
--- NOTE | 2020-01-04 07:54 | ANE.PACU2 ---
Inpatient post-anesthesia follow up: Airway intact: Yes Vital signs: Temperature 98.1 F Pulse Rate 80 Respiratory Rate 19 Blood Pressure 104/64 Pulse Oximetry 97 Oxygen Delivery Me thod Room Air Oxygen Flow Rate Fraction of Inspir ed Oxygen Hydration adequate: Yes Nausea and vomiting: No Pain level: 1 Mental status: Baseline Additional Comments: no headaches, no weakness/numbness in legs, urinating without shukla. NO signs of infection at epidural site
[2020-01-04] MEDS: ibuprofen 800 mg tablet PO ×2 (08:32→14:26)
[2020-01-04] MEDS: docusate sodium 100 mg Capsule PO (08:32)
[2020-01-04] MEDS: prenatal vitamin Capsule 1 CAP PO (08:32)
--- NOTE | 2020-01-04 09:25 | PC.NURSE ---
Mom was taking a shower & dad was holding baby
--- NOTE | 2020-01-04 17:35 | P.DS_ITS ---
Discharge Providers SEMICONDUCTOR TECHNICIAN Date of Admission: 01/03/20 03:37 Date of Discharge: 01/04/20 Attending Provider at Admission: Natalio Yanes MD Attending Provider at Discharge: Natalio Yanes MD Primary Care Provider: JOSE L Fabian Diagnoses at Discharge Discharge Diagnosis (1) 39 weeks gestation of : Status: Acute (2) Spontaneous vaginal delivery: Status: Acute Reason for Visit Reason for Visit: Contractions Hospital Course Hospital Course: The patient presented to the hospital in active labor. An amniotomy was performed. The patient progressed to complete and had an unremarkable delivery of a healthy-appearing 40-week female infant. Her course was unremarkable except for labial swelling that resulted in difficulty urinating. She had to be straight cathed several times, but as her labial swelling improved, she is able to urinate without difficulty several times before being discharged. She bottle-fed her baby. Her bleeding was within normal limits. Her pain was well controlled. There were no other concerns. Information Peripartum Data: Delivery Method: Vaginal Physical Exam Narrative: EXAM NARRATIVE: The patient is alert. She appears comfortable. Her heart has a regular rate and rhythm with no murmurs appreciated. Lungs are clear to auscultation bilaterally. Her fundus is firm and below the umbilicus. Urinary Catheter Management^: Lassiter: Cath Placed During This Visit: yes Reason for Continuing Indwelling Catheter: Required Immobilization for Trauma or Surgery or Anesthesia Urinary Catheter Date of Insertion: 01/03/20 Urinary Catheter Time of Insertion: 06:00 Discharge Data Data Completed and Pending: Labs from last 24 hours 01/04/20 05:45 WBC 26.2 H RBC 4.04 L Hgb 12.1 Hct 35.9 L MCV 88.9 MCH 30.0 MCHC 33.7 RDW 13.3 Plt Count 278 MPV 11.6 H Vitals: Last Vital Signs Temp 98.0 F 01/04/20 16:52 Pulse 79 01/04/20 16:52 Resp 18 01/04/20 16:52 BP 100/62 01/04/20 16:52 Pulse Ox 97 01/04/20 05:25 Discharge Plan Discharge Patient Disposition: Home Condition: Stable Prescriptions: New ibuprofen 800 mg Tablet 800 mg PO TID Qty: 30 RF: 0 Continued Multivitamins 28 mg iron- 800 mcg Tablet 1 tab PO DAILY RF: 0 Discharge Orders: Discharge Order (Routine); Ordered 01/04/20 Ordered By: Natalio Yanes Referrals: Natalio Yanes MD [Physician] - 02/15/20 8:00 am (Your 6 week check up is scheduled for 02/15/2020 at 8:[address] Yanes.) Discharge Diet: Usual diet Discharge Activity: Limit activity as instructed Patient Instructions: Bleeding (DC), OB Discharge Report, OB Food/Drug Interaction Guide, OB Home Care, OB Proud Parent Packet, OB Vaginal Deliveries Discharge Attestations SEMICONDUCTOR TECHNICIAN Time Spent in Discharge Care*: less than 30 min Coding Level of Care Code Acute Public Relations Consultant for Chg Fwd Diagnoses 39 weeks gestation of Z3A.39 Spontaneous vaginal delivery O80
== END 2020-01-04 19:40 | disposition home or self-care (01) | DRG 807 ==
LOC: OPOB 03:37 → OBGYN 03:37
PROVIDERS: Admitting Provider Family Medicine; PCP Nurse Practitioner; Visit Provider Family Medicine
DX: O77.0 Labor and delivery complicated by meconium in amniotic fluid (principal); Z37.0 Single live birth; O69.2XX0 Labor and delivery complicated by other cord entanglement, with compression, not applicable or unspecified; O70.0 First degree perineal laceration during delivery; Z3A.39 39 weeks gestation of pregnancy
CPT/HCPCS: 12345; 36415; 51702; 59409; 85025; 85027; 96375; 99211; J2405; J2795; J3010

== ENCOUNTER 2020-02-06 00:27 | Emergency (ER) | payer MEDICAID, SELFPAY ==
[2020-02-06 00:30] VITALS: BP 117/75; PULSE 66; RESP 16; TEMP 36.6; O2SAT 99; BMI 19.7
--- NOTE | 2020-02-06 00:40 | ED_ITS ---
HPI - Female Genitourinary General: Chief complaint: Urogenital-Female Stated complaint: weak urine stream, cramping Time Seen by Provider: 02/06/20 00:40 Source: patient Mode of arrival: ambulatory Limitations: no limitations History of Present Illness: HPI Narrative: Patient comes in with increased difficulty urinating. Patient states that she had difficulty urinating after it was noted in her record from Dr. Yanes. Patient delivered about 1 month ago. Today patient's only been able to urinate 2 times. Patient reports weak stream. Patient appears well. Patient appears in no pain. MD elicited complaint: difficulty urinating Date of Last Menstrual Period: 03/31/19 Review of Systems General: Reports: 10 or more systems reviewed and unremarkable except in HPI and below : Reports: difficulty voiding PFSH ED PFSH: Medical History (Updated 02/06/20 @ 02:14 by IRVIN Yoon) Depression with anxiety Family History Grandmother Diabetes maternal Breast cancer maternal Father Hypercholesteremia Social History Smoking and tobacco status: former smoker Quit status (tobacco): has quit using tobacco Year quit tobacco: 2019 Former quit date comment: Quit age 24. Most smoked 1/2 ppd. Started age 18. Alcohol intake: never Additional social history: well balanced diet Female Reproductive History: Date of last menstrual period: 03/31/19 Para: 2 Spontaneous abortions: Yes (1) Physical Exam Const: COMMON NORMALS: no acute distress and patient oriented x3 GENERAL APPEARANCE: cooperative HENMT: COMMON NORMALS: normocephalic and Normal external nose present HEAD & SCALP: normal to inspection and normocephalic NOSE: Normal external nose p resent MOUTH: Normal oral and palatal mucosa present Eye: GENERAL EYE: appearance normal, both eyes and all related structures Neck/C-Spine: COMMON NORMALS: full ROM Chest: COMMONS NORMALS: normal inspection of the chest Resp: COMMON NORMALS: normal respiratory effort EFFORT & INSPECTION: Yes able to speak in complete sentences Cardio: COMMON NORMALS: regular rate and regular rhythm RATE: regular rate RHYTHM: regular rhythm GI: COMMON NORMALS: non-tender : COMMON NORMALS: Yes no CVA tenderness BLADDER/KIDNEY EXAM: Yes no CVA tenderness Back/Pelvis: COMMON NORMALS: no CVA tenderness and thoracic and lumbar spine normal to inspection Extremity: COMMON NORMALS: normal to inspection Neuro: COMMON NORMALS: patient oriented x3 and moves all extremities Psych: COMMON NORMALS: mental status grossly normal and cooperative Skin: COMMON NORMALS: no rashes or lesions noted GENERAL SKIN EXAM: no rashes or lesions noted Course Vital Signs: Vital signs: Vital Signs Temperature 97.8 F 02/06/20 00:30 Pulse Rate 66 02/06/20 00:30 Respiratory Rate 16 02/06/20 00:30 Blood Pressure 117/75 02/06/20 00:30 Pulse Oximetry 99 02/06/20 00:30 MDM - Female MDM Narrative: Medical decision making narrative: Patient comes in today with complaints of urinary difficulty. Patient reports that she is benign behavioral to have a sensation of fully emptying her bladder. Patient reports some increased difficulty over the last month with this. Patient gave to her infant 1 month ago. Exam notes no abdominal tenderness. Respirations were even lungs were clear to auscultation. Bladder scan noted that patient had about 350 mL of urine in it. Patient was unable to void so we did a straight catheter and patient had 500 mL out. Differential diagnosis included acute urinary retention, urinary tract infection, neurogenic bladder. Reviewed with patient recommendations to her to try to keep the bladder is empty as possible not that neck get overextended. Recommending frequent urination every 2-3 hours. We will arrange for patient to follow-up with urology for further evaluation and treatment. Laboratory values were unremarkable without any signs of infection, or renal dysfunction. Patient reported understanding of care plan and need for follow-up. Lab Data: Labs: Lab Results 02/06/20 02/06/20 02/06/20 Range/Units 00:56 00:56 00:56 WBC 8.0 (4.0-10.0) 10^3/ uL RBC 4.82 (4.1-5.3) 10^6/u L Hgb 14.0 (11.5-15.3) g/dL Hct 42.3 (37.0-47.0) % MCV 87.8 (81-99) fL MCH 29.0 (28.0-34.0) pg MCHC 33.1 (30.0-36.0) g/dL RDW 12.3 (12.1-15.1) % Plt Count 260 (130-400) 10^3/c mm MPV 11.1 H (7.4-10.4) fL Neut % (Auto) 50.0 % Lymph % (Auto) 38.1 % [place] % (Auto) 6.9 % Eos % (Auto) 4.3 % Baso % (Auto) 0.6 % Neut # (Auto) 3.98 (1.8-7.7) 10^3/u L Lymph # (Auto) 3.0 (0.8-4.8) 10^3/u L [place] # (Auto) 0.6 (0.2-0.9) 10^3/u L Eos # (Auto) 0.3 (0.0-0.8) 10^3/u L Baso # (Auto) 0.1 (0.0-0.1) 10^3/u L Nucleated RBC % (a uto) 0 % Nucleated RBCs # 0.0 /100WBC Sodium 139 (136-145) mmol/L Potassium 3.8 (3.5-5.1) mmol/L Chloride 104 (98-107) mmol/L Carbon Dioxide 28 (22-29) mmol/L Anion Gap 10.8 (5-19) BUN 9 (6-20) mg/dL Creatinine 0.5 (0.5-0.9) mg/dL GFR Calculation 150.3 H (90-130) mL/min Glucose 92 (65-115) mg/dL Calculated Osmolal ity 286 (285-295) mOsm/k g Calcium 9.6 (8.5-10.5) mg/dL HCG, Qual Negative (Negative) Urine Color (Yellow) Urine Appearance (CLEAR) Urine pH (5-7) Ur Specific Gravit y (1.005-1.030) Urine Protein (Negative) Urine Glucose (UA) (Normal) Urine Ketones (Negative) Urine Blood (Negative) Urine Nitrate (Negative) Urine Bilirubin (Negative) Urine Urobilinogen (Negative) mg/dL Ur Leukocyte Ijeoma ase (Negative) 02/06/20 Range/Units 01:43 WBC (4.0-10.0) 10^3/ uL RBC (4.1-5.3) 10^6/u L Hgb (11.5-15.3) g/dL Hct (37.0-47.0) % MCV (81-99) fL MCH (28.0-34.0) pg MCHC (30.0-36.0) g/dL RDW (12.1-15.1) % Plt Count (130-400) 10^3/c mm MPV (7.4-10.4) fL Neut % (Auto) % Lymph % (Auto) % [place] % (Auto) % Eos % (Auto) % Baso % (Auto) % Neut # (Auto) (1.8-7.7) 10^3/u L Lymph # (Auto) (0.8-4.8) 10^3/u L [place] # (Auto) (0.2-0.9) 10^3/u L Eos # (Auto) (0.0-0.8) 10^3/u L Baso # (Auto) (0.0-0.1) 10^3/u L Nucleated RBC % (a uto) % Nucleated RBCs # /100WBC Sodium (136-145) mmol/L Potassium (3.5-5.1) mmol/L Chloride (98-107) mmol/L Carbon Dioxide (22-29) mmol/L Anion Gap (5-19) BUN (6-20) mg/dL Creatinine (0.5-0.9) mg/dL GFR Calculation (90-130) mL/min Glucose (65-115) mg/dL Calculated Osmolal ity (285-295) mOsm/k g Calcium (8.5-10.5) mg/dL HCG, Qual (Negative) Urine Color Yellow (Yellow) Urine Appearance Clear (CLEAR) Urine pH 7 (5-7) Ur Specific Gravit y 1.010 (1.005-1.030) Urine Protein Neg (Negative) Urine Glucose (UA) Norm (Normal) Urine Ketones Negative (Negative) Urine Blood Neg (Negative) Urine Nitrate Negative (Negative) Urine Bilirubin Neg (Negative) Urine Urobilinogen 1 H (Negative) mg/dL Ur Leukocyte Ijeoma ase Negative (Negative) Discharge Plan Discharge Patient Disposition: Home Clinical Impression: Urinary retention Condition: Stable Prescriptions: No Action Multivitamins 28 mg iron- 800 mcg Tablet 1 tab PO DAILY RF: 0 ibuprofen 800 mg Tablet 800 mg PO TID Qty: 30 RF: 0 Discharge Orders: Discharge Order (Routine); Ordered 02/06/20 Ordered By: Eber Gregorio Referrals: Manule Arvizu FNP-C [Primary Care Provider] - Discharge Diet: Usual diet Discharge Activity: Increase activity as tolerated Patient Instructions: Acute Urinary Retention in Women (ED) Activity Restrictions/Additional Instructions: Do not hold urine longer than 2 hours. Drink plenty of water. Continue with antibiotic for the next 3 days. Follow-up with urologist. Case management will contact you regarding urology appointment for urinary retention. Return to the emergency department for increased discomfort and for placement of catheter. Coding Level of Care Code ED Napping Machine Operator for Chg Fwd Exam Comprehensive
[2020-02-06 01:03] LABS: Basophils # 0.1 10^3/uL (0.0-0.1); Basophils % 0.6 %; Eosinophils # 0.3 10^3/uL (0.0-0.8); Eosinophils % 4.3 %; Hematocrit 42.3 % (37.0-47.0); Lymphocytes % 38.1 %; Mean Corpuscular HGB Conc 33.1 g/dL (30.0-36.0); Mean Corpuscular Volume 87.8 fL (81-99); Mean Platelet Volume 11.1 fL (7.4-10.4); Monocytes # 0.6 10^3/uL (0.2-0.9); Monocytes % 6.9 %; Neutrophils # 3.98 10^3/uL (1.8-7.7); Nucleated Red Blood Cells % 0 %; Platelet Count 260 10^3/cmm (130-400); Red Blood Count 4.82 10^6/uL (4.1-5.3); Red Cell Distribution Width 12.3 % (12.1-15.1)
[2020-02-06 01:37] LABS: Anion Gap 10.8 (5-19); Blood Urea Nitrogen 9 mg/dL (6-20); Calcium 9.6 mg/dL (8.5-10.5); Carbon Dioxide 28 mmol/L (22-29); Chloride 104 mmol/L (98-107); Glomerular Filtration Rate 150.3 mL/min (90-130); Glucose 92 mg/dL (65-115); Osmolality Calculated 286 mOsm/kg (285-295); Potassium 3.8 mmol/L (3.5-5.1); Sodium 139 mmol/L (136-145)
[2020-02-06 01:54] LABS: HCG, Serum Qual Negative (Negative)
[2020-02-06 01:57] LABS: Add Urine Microscopic? NO
[2020-02-06 02:05] LABS: Urine Color Yellow (Yellow)
[2020-02-06 02:06] LABS: Bilirubin Urine Neg (Negative); Blood Urine Neg (Negative); Glucose Urine UA Norm (Normal); Ketones Urine Negative (Negative); Leukocyte Esterase Urine Negative (Negative); Nitrate Urine Negative (Negative); Protein Urine Neg (Negative); Urine Appearance Clear (CLEAR); Urobilinogen Urine 1 mg/dL (Negative); pH Urine 7 (5-7)
[2020-02-06 02:24] VITALS: BP 121/87; PULSE 78; RESP 18; O2SAT 99
--- NOTE | 2020-02-07 10:01 | DCPLANNER ---
manager water had message to schedule a follow up appointment for patient with Dr. Connelly. manager water called the office of Dr. Connelly, spoke with Tomasa, gave clinic patients information. manager water was told that patients information would be printed and reviewed. Clinic will call patient with appointment information.
--- NOTE | 2020-02-08 08:12 | DCPLANNER ---
Patient has a follow up appointment scheduled for February at 3:[address] Connelly. Clinic will call patient with appointment information.
--- NOTE | 2020-03-24 12:39 | DCPLANNER ---
Patient had a follow up appointment scheduled for 02.24.[address] Connelly - patient did attend appointment.
== END 2020-02-06 02:26 | disposition home or self-care (01) ==
PROVIDERS: Emergency Provider Nurse Practitioner Family; PCP Nurse Practitioner
DX: R33.9 Retention of urine, unspecified (principal); Z87.891 Personal history of nicotine dependence
CPT/HCPCS: 12345; 51798; 80048; 81003; 84703; 85025; 99282

== ENCOUNTER 2020-02-14 18:59 | Emergency (ER) | payer MEDICAID, SELFPAY ==
[2020-02-14 19:12] VITALS: BP 119/72; PULSE 69; RESP 16; TEMP 36.8; O2SAT 98; BMI 19.7
[2020-02-14 20:17] VITALS: BP 113/79; PULSE 74; RESP 18; O2SAT 100
[2020-02-14 20:30] VITALS: PULSE 78; RESP 20; O2SAT 100
--- NOTE | 2020-02-14 20:39 | ED_ITS ---
HPI - Abdominal Pain General: Chief Complaint: Abdominal Pain Stated Complaint: abdominal discomfort/water retention Time Seen by Provider: 02/14/20 20:31 Source: patient Mode of arrival: ambulatory Limitations: no limitations History of Present Illness: HPI narrative: 25-year-old female who gave over a month ago. She seen here last week for urinary retention. States she has been able to urinate but still has discomfort in her lower abdomen especially when she needs to urinate. She has been able to void and has not had retention. She states she also has had a slight clear discharge. States her pain is a 3 out of 10. Denies any fever. Denies any bleeding. Associated Symptoms: Denies chills and fever(s) Related Data: Date of Last Menstrual Period: 03/31/19 Review of Systems Const: Denies: fever(s), chills, body aches or change in appetite Eyes: Denies: blurry vision or eye discomfort ENMT: Denies: throat pain or dental pain Card: Denies: chest pain Resp: Denies: dyspnea GI: Reports: abdominal pain : Reports: vaginal discharge Musc: Denies: neck pain or back pain Skin/Breast: Denies: rash Neuro: Denies: headache(s) Psych: Denies: depression Oscar/Lymph: Denies: easy bruising All/Imm: Denies: urticaria PFSH ED PFSH: Medical History (Updated 02/14/20 @ 22:57 by Wesley Paulson MD) Depression with anxiety Family History Grandmother Diabetes maternal Breast cancer maternal Father Hypercholesteremia Social History Smoking and tobacco status: former smoker Quit status (tobacco): has quit using tobacco Year quit tobacco: 2019 Former quit date comment: Quit age 24. Most smoked 1/2 ppd. Started age 18. Alcohol intake: never Additional social history: well balanced diet Female Reproductive History: Date of last menstrual period: 03/31/19 Para: 2 Spontaneous abortions: Yes (1) Physical Exam Const: COMMON NORMALS: no acute distress, patient oriented x3 and healthy appearing HENMT: COMMON NORMALS: normocephalic and atraumatic HEAD & SCALP: normocephalic and atraumatic Eye: COMMON NORMALS: Equal, round and reactive pupils present and EOMs intact bilaterally PUPIL: Yes Equal, round and reactive pupils present Neck/C-Spine: COMMON NORMALS: full ROM and supple Chest: COMMONS NORMALS: normal inspection of the chest and normal palpation of entire chest wall Resp: COMMON NORMALS: normal respiratory effort, No retractions, No use of accessory muscles and clear to auscultation bilaterally AUSCULTATION: clear to auscultation bilaterally Cardio: COMMON NORMALS: regular rate, regular rhythm and No murmurs present (Cardio) RATE: regular rate RHYTHM: regular rhythm GI: COMMON NORMALS: Normal to inspection, nondistended, normoactive bowel sounds present, Soft to palpation, non-tender and no masses PALPATION: Yes Soft to palpation : OTHER: Clear discharge with no odor cervix is normal no cervical motion tenderness Extremity: COMMON NORMALS: normal to inspection and full ROM Neuro: COMMON NORMALS: patient oriented x3, moves all extremities and no focal motor deficits Psych: COMMON NORMALS: mental status grossly normal, Normal thought process present and cooperative THOUGHT PROCESS: Normal thought process present Skin: COMMON NORMALS: no rashes or lesions noted and no wounds GENERAL SKIN EXAM: no rashes or lesions noted Course Vital Signs: Vital signs: Vital Signs Temperature 98.2 F 02/14/20 19:12 Pulse Rate 74 02/14/20 21:00 Respiratory Rate 18 02/14/20 21:00 Blood Pressure 113/79 02/14/20 20:17 Pulse Oximetry 100 02/14/20 21:00 MDM - Abdominal Pain MDM Narrative: Medical decision making narrative: Patient presents with lower abdominal pain likely still due to some slight urinary retention but she is able to urinate. She is to follow-up with her apparatus cleaner. Her lab work here is normal and valve exam is normal. She has no tenderness and does not require CT at this time. She is to return if worsening. She understands agrees to plan. Lab Data: Labs: Lab Results 02/14/20 02/14/20 02/14/20 Range/Units 20:56 20:56 22:11 WBC 7.8 (4.0-10.0) 10^3/ uL RBC 4.76 (4.1-5.3) 10^6/u L Hgb 13.8 (11.5-15.3) g/dL Hct 41.8 (37.0-47.0) % MCV 87.8 (81-99) fL MCH 29.0 (28.0-34.0) pg MCHC 33.0 (30.0-36.0) g/dL RDW 12.3 (12.1-15.1) % Plt Count 296 (130-400) 10^3/c mm MPV 11.0 H (7.4-10.4) fL Neut % (Auto) 53.8 % Lymph % (Auto) 36.5 % [place] % (Auto) 5.0 % Eos % (Auto) 4.1 % Baso % (Auto) 0.6 % Neut # (Auto) 4.17 (1.8-7.7) 10^3/u L Lymph # (Auto) 2.8 (0.8-4.8) 10^3/u L [place] # (Auto) 0.4 (0.2-0.9) 10^3/u L Eos # (Auto) 0.3 (0.0-0.8) 10^3/u L Baso # (Auto) 0.1 (0.0-0.1) 10^3/u L Nucleated RBC % (a uto) 0 % Nucleated RBCs # 0.0 /100WBC Sodium 141 (136-145) mmol/L Potassium 3.8 (3.5-5.1) mmol/L Chloride 106 (98-107) mmol/L Carbon Dioxide 26 (22-29) mmol/L Anion Gap 12.8 (5-19) BUN 11 (6-20) mg/dL Creatinine 0.6 (0.5-0.9) mg/dL GFR Calculation 121.8 (90-130) mL/min Glucose 99 (65-115) mg/dL Calculated Osmolal ity 291 (285-295) mOsm/k g Calcium 9.6 (8.5-10.5) mg/dL Total Bilirubin 0.3 (0.15-1.2) mg/dL AST 33 H (0-32) U/L ALT 61 H (0-33) U/L Alkaline Phosphata se 83 (35-105) IU/L Total Protein 7.2 (6.6-8.7) g/dL Albumin 4.4 (3.5-5.2) g/dL Globulin 2.8 (1.3-4.6) g/dL Lipase 30 (13-60) U/L Urine Color Yellow (Yellow) Urine Appearance Clear (CLEAR) Urine pH 7.0 (5-7) Ur Specific Gravit y 1.010 (1.005-1.030) Urine Protein Neg (Negative) Urine Glucose (UA) Norm (Normal) Urine Ketones Negative (Negative) Urine Blood Neg (Negative) Urine Nitrate Negative (Negative) Urine Bilirubin Neg (Negative) Urine Urobilinogen Norm (Negative) mg/dL Ur Leukocyte Ijeoma ase Negative (Negative) Discharge Plan Discharge Patient Disposition: Home Clinical Impression: Abdominal pain Qualifiers: Abdominal location: periumbilical Qualified Code(s): R10.33 - Periumbilical pain Condition: Stable Prescriptions: No Action cephalexin 500 mg capsule 500 mg PO TID RF: 0 Bit-La-Npwuudvu 0.18/0.215/0.25 mg-25 mcg tablet See Rx Instructions .ROUTE .COMPLEX RF: 0 Discharge Orders: Discharge Order (Routine); Ordered 02/14/20 Ordered By: Wesley Paulson Referrals: Manuel Arvizu, VETERINARY MEDICINE TEACHER-C [Primary Care Provider] - Discharge Diet: Advance as tolerated Discharge Activity: Resume usual activity Patient Instructions: Abdominal Pain (ED) Coding Level of Care Code ED Manager Ccu for Corrinag Fwd Exam Comprehensive
[2020-02-14 21:00] VITALS: PULSE 74; RESP 18; O2SAT 100
[2020-02-14 21:15] LABS: Basophils # 0.1 10^3/uL (0.0-0.1); Basophils % 0.6 %; Eosinophils # 0.3 10^3/uL (0.0-0.8); Eosinophils % 4.1 %; Hematocrit 41.8 % (37.0-47.0); Hemoglobin 13.8 g/dL (11.5-15.3); Lymphocytes # 2.8 10^3/uL (0.8-4.8); Lymphocytes % 36.5 %; Mean Corpuscular Volume 87.8 fL (81-99); Monocytes # 0.4 10^3/uL (0.2-0.9); Neutrophils # 4.17 10^3/uL (1.8-7.7); Neutrophils % 53.8 %; Nucleated Red Blood Cells % 0 %; Platelet Count 296 10^3/cmm (130-400); Red Blood Count 4.76 10^6/uL (4.1-5.3); Red Cell Distribution Width 12.3 % (12.1-15.1); White Blood Count 7.8 10^3/uL (4.0-10.0)
[2020-02-14 21:50] LABS: Alanine Aminotransferase 61 U/L (0-33); Albumin Level 4.4 g/dL (3.5-5.2); Alkaline Phosphatase 83 IU/L (35-105); Anion Gap 12.8 (5-19); Aspartate Amino Transferase 33 U/L (0-32); Blood Urea Nitrogen 11 mg/dL (6-20); Calcium 9.6 mg/dL (8.5-10.5); Carbon Dioxide 26 mmol/L (22-29); Chloride 106 mmol/L (98-107); Globulin 2.8 g/dL (1.3-4.6); Glomerular Filtration Rate 121.8 mL/min (90-130); Glucose 99 mg/dL (65-115); Lipase 30 U/L (13-60); Osmolality Calculated 291 mOsm/kg (285-295); Potassium 3.8 mmol/L (3.5-5.1); Sodium 141 mmol/L (136-145); Total Bilirubin 0.3 mg/dL (0.15-1.2); Total Protein 7.2 g/dL (6.6-8.7)
[2020-02-14 22:23] LABS: Add Urine Microscopic? NO
[2020-02-14 22:30] VITALS: BP 102/73; PULSE 65; RESP 18; TEMP 36.4; O2SAT 99
[2020-02-14 22:46] LABS: Bilirubin Urine Neg (Negative); Blood Urine Neg (Negative); Glucose Urine UA Norm (Normal); Ketones Urine Negative (Negative); Leukocyte Esterase Urine Negative (Negative); Nitrate Urine Negative (Negative); Protein Urine Neg (Negative); Urine Appearance Clear (CLEAR); Urine Color Yellow (Yellow); Urobilinogen Urine Norm (Negative)
== END 2020-02-14 23:07 | disposition home or self-care (01) ==
PROVIDERS: Emergency Provider Emergency Medicine; PCP Nurse Practitioner
DX: R10.33 Periumbilical pain (principal); Z87.891 Personal history of nicotine dependence
CPT/HCPCS: 12345; 80053; 81003; 83690; 85025; 87210; 87491; 87591; 99283

== ENCOUNTER → 2020-02-24 13:11 | Outpatient (BNVA) | payer MEDICAID, SELFPAY | PROVIDERS: PCP Nurse Practitioner; Visit Provider Nurse Practitioner Family | DX: R33.9 Retention of urine, unspecified (principal) | CPT/HCPCS: 81003 ==

== ENCOUNTER → 2020-06-07 15:23 | Outpatient (BNVA) | payer BC, SELFPAY | PROVIDERS: PCP Nurse Practitioner; Visit Provider Urology | DX: R33.9 Retention of urine, unspecified (principal); N31.9 Neuromuscular dysfunction of bladder, unspecified | CPT/HCPCS: 81003 ==

== ENCOUNTER → 2020-07-12 08:47 | Outpatient (BNVA) | payer BC, MEDICAID, SELFPAY | PROVIDERS: PCP Nurse Practitioner; Visit Provider Specialist | DX: N31.9 Neuromuscular dysfunction of bladder, unspecified (principal); R33.9 Retention of urine, unspecified; K59.00 Constipation, unspecified; Z87.891 Personal history of nicotine dependence | CPT/HCPCS: 99204 ==

== ENCOUNTER 2021-06-06 21:46 | Emergency (ER) | payer BC, MEDICAID, SELFPAY ==
[2021-06-06 22:02] VITALS: BP 125/73; PULSE 92; RESP 16; TEMP 36.8; O2SAT 100; BMI 17.5
--- NOTE | 2021-06-06 23:04 | W.ED.ABDPA2 ---
HPI - Abdominal Pain General: Chief Complaint: Abdominal Pain Stated Complaint: under 30 days\Cramping\dizzy\Back Pain Time Seen by Provider: 06/06/21 22:48 Source: patient Mode of arrival: ambulatory Limitations: no limitations History of Present Illness: Patient is a 26-year-old female who presents to ED today with a complaint of positive home test and intermittent lower abdominal/pelvic cramping. Patient states she had a home test approximately 3 to 4 days ago. She states following positive results she began developing some intermittent mild (rating pain at a maximum of 3/10) pelvic cramping radiating into her back. She has also had one episode of woozy headedness . No passing out episodes. No chest pain, shortness of breath, difficulty breathing, palpitations. She is not having any vaginal bleeding or discharge. MD elicited complaint: abdominal pain Onset (ago): day(s) Pain Consistency: intermittent Location: Pelvis Severity: mild Pain scale (0-10): 3 Quality: cramping Radiation: none Migration to: no migration Exacerbating factors: nothing Relieving factors: nothing Associated Symptoms: Denies chills, diarrhea, dysuria, fever(s), hematuria, nausea and vomiting Related Data: Date of Last Menstrual Period: 05/05/21 Patient : Yes Review of Systems Const: Denies: fever(s), chills, body aches, fatigue or malaise Card: Denies: chest pain Resp: Denies: dyspnea GI: Reports: abdominal pain; Denies: nausea, vomiting or diarrhea : Reports: pelvic pain; Denies: flank pain, difficulty voiding, dysuria, urinary frequency, urinary urgency, urinary hesitancy, hematuria, genital lesions, genital pruritis, vaginal odor, vaginal bleeding or vaginal discharge Musc: Denies: neck pain, back pain, extremity pain or joint pain Skin/Breast: Denies: rash Neuro: Denies: headache(s), numbness in extremities, weakness in extremities, sensory changes, difficulty walking, frequent falls, vertigo, confusion, behavioral changes, Slurred speech present, difficulty communicating thoughts or seizure-like activity [facility] ED PFSH: Medical History Depression with anxiety Neurogenic bladder Psychiatric care Family History Grandmother Diabetes maternal Breast cancer maternal Father Hypercholesteremia Social History Smoking and tobacco status: former smoker Quit status (tobacco): has quit using tobacco Year quit tobacco: 2019 Former quit date comment: Quit age 24. Most smoked 1/2 ppd. Started age 18. Alcohol intake: never Adopted: No Caregiver/support person: No Lives independently: No Marital status: Current occupational status: unemployed History of recent travel: No Additional social history: well balanced diet Female Reproductive History: Date of last menstrual period: 05/05/21 Para: 2 Spontaneous abortions: Yes (1) Physical Exam Const: COMMON NORMALS: no acute distress, patient oriented x3, no limitations and alert GENERAL APPEARANCE: cooperative NUTRITIONAL APPEARANCE: thin ORIENTATION/CONSCIOUSNESS: Yes awake, Yes oriented to person, Yes oriented to place and Yes oriented to time HENMT: COMMON NORMALS: normocephalic and atraumatic HEAD & SCALP: normocephalic and atraumatic Resp: COMMON NORMALS: normal respiratory effort and clear to auscultation bilaterally AUSCULTATION: clear to auscultation bilaterally Cardio: COMMON NORMALS: regular rate and regular rhythm RATE: regular rate RHYTHM: regular rhythm GI: COMMON NORMALS: Normal to inspection, nondistended, normoactive bowel sounds present, Soft to palpation, non-tender, No hepatosplenomegaly present and no masses PALPATION: Yes Soft to palpation and Yes No hepatosplenomegaly present : COMMON NORMALS: Yes no CVA tenderness BLADDER/KIDNEY EXAM: Yes no CVA tenderness Back/Pelvis: COMMON NORMALS: no CVA tenderness, thoracic and lumbar spine normal to inspection, no thoracic nor lumbar tenderness and thoraco-lumbar ROM normal Extremity: COMMON NORMALS: normal to inspection GENERAL: Yes normal exam except as noted Neuro: SHAREE COMA SCALE: document GCS findings [place] coma scale eye opening: Spontaneous Sharee coma scale verbal response: Orientated [place] coma scale motor response: Obey commands [place] coma scale total score: 15 COMMON NORMALS: patient oriented x3, moves all extremities, no focal motor deficits and no sensory deficits noted SENSORIUM/ORIENTATION: Yes alert, Yes oriented to person, Yes oriented to place and Yes oriented to time Skin: COMMON NORMALS: no rashes or lesions noted GENERAL SKIN EXAM: no rashes or lesions noted Course Vital Signs: Vital signs: Vital Signs Temperature 98.3 F 06/06/21 22:02 Pulse Rate 80 06/06/21 23:22 Respiratory Rate 18 06/06/21 23:22 Blood Pressure 120/78 06/06/21 23:22 Pulse Oximetry 99 06/06/21 23:22 MDM - Abdominal Pain Medical Decision Making Patient is not having any pain currently. She reports minimal 3/10 intermittent brief pelvic cramping episodes. She is not having any vaginal bleeding. Vital signs are stable. Labs overall are unremarkable. Her hCG today is 1442. UA is clear. LMP places her at a gestation of 4w5d. Discussed how this early in we would unlikely be able to distinguish anything via ultrasound. She is not having any signs or symptoms to make me concerned for an ectopic at this time. Recommended very close observation of symptoms at home and she needs to return to the emergency department immediately for any severe lower abdominal/pelvic pain/cramping, heavy vaginal bleeding, passing out episodes, or any other concerns she may have. Otherwise recommend she follows up with her OB provider at her scheduled appointment in 2 weeks. Lab Data : 06/06/21 23:20 06/06/21 23:20 Labs/Radiology: Laboratory Results WBC 8.9 10^3/uL (4.0-10.0) 06/06/21 23:20 RBC 4.39 10^6/uL (4.1-5.3) 06/06/21 23:20 Hgb 12.6 g/dL (11.5-15.3) 06/06/21 23:20 Hct 37.4 % (37.0-47.0) 06/06/21 23:20 MCV 85.2 fl (81-99) 06/06/21 23:20 MCH 28.7 pg (28.0-34.0) 06/06/21 23:20 MCHC 33.7 g/dL (30.0-36.0) 06/06/21 23:20 RDW 13.2 % (12.1-15.1) 06/06/21 23:20 Plt Count 292 10^3/cmm (130-400) 06/06/21 23:20 MPV 11.0 fL (7.4-10.4) H 06/06/21 23:20 Neut % (Auto) 59.9 % 06/06/21 23:20 Lymph % (Auto) 30.5 % 06/06/21 23:20 [place] % (Auto) 5.5 % 06/06/21 23:20 Eos % (Auto) 3.3 % 06/06/21 23:20 Baso % (Auto) 0.6 % 06/06/21 23:20 Neut # (Auto) 5.35 10^3/uL (1.8-7.7) 06/06/21 23:20 Lymph # (Auto) 2.7 10^3/uL (0.8-4.8) 06/06/21 23:20 [place] # (Auto) 0.5 10^3/uL (0.2-0.9) 06/06/21 23:20 Eos # (Auto) 0.3 10^3/uL (0.0-0.8) 06/06/21 23:20 Baso # (Auto) 0.1 10^3/uL (0.0-0.1) 06/06/21 23:20 Nucleated RBC % (auto) 0 % 06/06/21 23:20 Nucleated RBCs # 0.0 /100WBC 06/06/21 23:20 Sodium 137 mmol/L (136-145) 06/06/21 23:20 Potassium 3.9 mmol/L (3.5-5.1) 06/06/21 23:20 Chloride 104 mmol/L (98-107) 06/06/21 23:20 Carbon Dioxide 22 mmol/L (22-29) 06/06/21 23:20 Anion Gap 14.9 (5-19) 06/06/21 23:20 BUN 8 mg/dL (6-20) 06/06/21 23:20 Creatinine 0.5 mg/dL (0.5-0.9) 06/06/21 23:20 GFR Calculation 149.1 mL/min (90-130) H 06/06/21 23:20 Glucose 94 mg/dL (65-115) 06/06/21 23:20 Calculated Osmolality 282 mOsm/kg (285-295) L 06/06/21 23:20 Calcium 9.9 mg/dL (8.5-10.5) 06/06/21 23:20 Total Bilirubin 0.2 mg/dL (0.15-1.2) 06/06/21 23:20 AST 14 U/L (0-32) 06/06/21 23:20 ALT 15 U/L (0-33) 06/06/21 23:20 Alkaline Phosphatase 37 IU/L (35-105) 06/06/21 23:20 Total Protein 7.2 g/dL (6.6-8.7) 06/06/21 23:20 Albumin 4.9 g/dL (3.5-5.2) 06/06/21 23:20 Globulin 2.3 g/dL (1.3-4.6) 06/06/21 23:20 Ser , Semi-Qnt 1442.00 mIU/mL 06/06/21 23:20 Urine Color Yellow (Yellow) 06/07/21 00:06 Urine Appearance Clear (CLEAR) 06/07/21 00:06 Urine pH 5 (5-7) 06/07/21 00:06 Ur Specific [place] 1.020 (1.005-1.030) 06/07/21 00:06 Urine Protein Neg (Negative) 06/07/21 00:06 Urine Glucose (UA) Norm (Normal) 06/07/21 00:06 Urine Ketones Negative (Negative) 06/07/21 00:06 Urine Blood Neg (Negative) 06/07/21 00:06 Urine Nitrate Negative (Negative) 06/07/21 00:06 Urine Bilirubin Neg (Negative) 06/07/21 00:06 Urine Urobilinogen Norm mg/dL (Negative) 06/07/21 00:06 Ur Leukocyte Esterase Negative (Negative) 06/07/21 00:06 Discharge Plan Discharge Patient Disposition: Home Clinical Impression: First trimester Condition: Stable Prescriptions: No Action Ndn-Lv-Dqhcndxe 0.18/0.215/0.25 mg-25 mcg tablet See Rx Instructions .ROUTE .COMPLEX 0RF Rx Instructions: tab. USE DIRECTED PT STATES THAT SHE HAS NOT YET STARTED THIS MEDICATION. Discharge Orders: Discharge ED (Routine); Ordered 06/07/21 Ordered By: Blanca Fermin Referrals: Manuel Arvizu, ENROLLMENT MANAGEMENT COORDINATOR-C [Primary Care Provider] - Patient Instructions: (ED) Activity Restrictions/Additional Instructions: Begin taking vitamins if you have not already done so. As we discussed test was positive here. hCG levels were roughly 1400. You need to return to the emergency department immediately for severe abdominal/pelvic pain, vaginal bleeding, passing out episodes, or any other concerns you may have. Coding Level of Care Code ED Netsuite Developer for Chg Fwd Exam Comprehensive
[2021-06-06 23:22] VITALS: BP 120/78; PULSE 80; RESP 18; O2SAT 99
--- NOTE | 2021-06-06 23:24 | PC.NURSE ---
patient received with c/o cramping pain. states 4th , denies bleeding or other s/s.
[2021-06-06 23:26] LABS: Basophils # 0.1 10^3/uL (0.0-0.1); Basophils % 0.6 %; Eosinophils # 0.3 10^3/uL (0.0-0.8); Eosinophils % 3.3 %; Hematocrit 37.4 % (37.0-47.0); Hemoglobin 12.6 g/dL (11.5-15.3); Lymphocytes # 2.7 10^3/uL (0.8-4.8); Lymphocytes % 30.5 %; Mean Corpuscular HGB Conc 33.7 g/dL (30.0-36.0); Mean Corpuscular Hemoglobin 28.7 pg (28.0-34.0); Mean Corpuscular Volume 85.2 fl (81-99); Monocytes # 0.5 10^3/uL (0.2-0.9); Monocytes % 5.5 %; Neutrophils # 5.35 10^3/uL (1.8-7.7); Neutrophils % 59.9 %; Nucleated Red Blood Cells % 0 %; Platelet Count 292 10^3/cmm (130-400); Red Blood Count 4.39 10^6/uL (4.1-5.3); Red Cell Distribution Width 13.2 % (12.1-15.1); White Blood Count 8.9 10^3/uL (4.0-10.0)
[2021-06-07 00:06] LABS: Alanine Aminotransferase 15 U/L (0-33); Albumin Level 4.9 g/dL (3.5-5.2); Alkaline Phosphatase 37 IU/L (35-105); Anion Gap 14.9 (5-19); Aspartate Amino Transferase 14 U/L (0-32); Blood Urea Nitrogen 8 mg/dL (6-20); Calcium 9.9 mg/dL (8.5-10.5); Carbon Dioxide 22 mmol/L (22-29); Chloride 104 mmol/L (98-107); Globulin 2.3 g/dL (1.3-4.6); Glomerular Filtration Rate 149.1 mL/min (90-130); Glucose 94 mg/dL (65-115); Osmolality Calculated 282 mOsm/kg (285-295); Potassium 3.9 mmol/L (3.5-5.1); Sodium 137 mmol/L (136-145); Total Bilirubin 0.2 mg/dL (0.15-1.2); Total Protein 7.2 g/dL (6.6-8.7)
[2021-06-07 00:14] LABS: Add Urine Microscopic? NO; Charge for UA Resulting for Rev
[2021-06-07 00:19] LABS: Bilirubin Urine Neg (Negative); Blood Urine Neg (Negative); Glucose Urine UA Norm (Normal); Ketones Urine Negative (Negative); Leukocyte Esterase Urine Negative (Negative); Nitrate Urine Negative (Negative); Protein Urine Neg (Negative); Urine Appearance Clear (CLEAR); Urine Color Yellow (Yellow); Urobilinogen Urine Norm (Negative); pH Urine 5 (5-7)
== END 2021-06-07 00:45 | disposition home or self-care (01) ==
PROVIDERS: Emergency Provider Physician Assistant; PCP Nurse Practitioner
DX: O26.891 Other specified pregnancy related conditions, first trimester (principal); R10.2 Pelvic and perineal pain; Z3A.01 Less than 8 weeks gestation of pregnancy; Z87.891 Personal history of nicotine dependence
CPT/HCPCS: 80053; 81003; 84702; 85025; 99283

== ENCOUNTER → 2021-09-04 13:27 | Outpatient (BNVA) | payer BC, MEDICAID, SELFPAY | PROVIDERS: PCP Nurse Practitioner; Visit Provider Psychiatry & Neurology Psychiatry | DX: F33.1 Major depressive disorder, recurrent, moderate (principal); F41.1 Generalized anxiety disorder | CPT/HCPCS: 99204 ==

== ENCOUNTER 2021-10-15 21:24 | Outpatient (CLI) | payer BC, MEDICAID, SELFPAY ==
[2021-10-15 21:24] VITALS: BMI 39.4
[2021-10-15 21:33] VITALS: RESP 16
[2021-10-15 21:38] VITALS: BP 110/66; PULSE 77
[2021-10-15 22:21] LABS: Add Urine Culture? No; Bacteria Urine 2+ /hpf; Bilirubin Urine Neg (Negative); Blood Urine Neg (Negative); Glucose Urine UA Norm (Normal); Ketones Urine Negative (Negative); Leukocyte Esterase Urine 1+ (Negative); Mucus Urine 1+ /hpf; Nitrate Urine Negative (Negative); Protein Urine Neg (Negative); RBC Urine 0-4 /hpf (0-2); Squamous Epithelial Cell Urine 25-40 /hpf (0-5); Urine Appearance SL Hazy (CLEAR); Urine Color Yellow (Yellow); Urobilinogen Urine Norm (Negative); WBC Urine 0-4 /hpf (0-5); pH Urine 7 (5-7)
== END 2021-10-15 23:05 | disposition home or self-care (01) ==
LOC: OPOB 21:31 → OBGYN 21:32
PROVIDERS: PCP Nurse Practitioner; Visit Provider Family Medicine
DX: O26.899 Other specified pregnancy related conditions, unspecified trimester (principal); Z3A.00 Weeks of gestation of pregnancy not specified; R10.9 Unspecified abdominal pain
CPT/HCPCS: 59025; 81001; 99211

== ENCOUNTER 2021-11-24 15:00 | Outpatient (CLI) | payer BC, MEDICAID, SELFPAY ==
[2021-11-24] VITALS (7 sets, daily range): BP systolic 105–112; BP diastolic 68; PULSE 74–85; RESP 16; O2SAT 99–100; BMI 22.8
== END 2021-11-24 15:45 | disposition home or self-care (01) ==
LOC: OPOB 15:08 → OBGYN 15:09
PROVIDERS: PCP Nurse Practitioner; Visit Provider Family Medicine
DX: Z36.9 Encounter for antenatal screening, unspecified (principal)
CPT/HCPCS: 59025

== ENCOUNTER 2021-11-24 15:54 | Emergency (ER) | payer BC, MEDICAID, SELFPAY ==
[2021-11-24 16:04] VITALS: BP 116/66; PULSE 89; RESP 16; TEMP 37.1; O2SAT 98
[2021-11-24 17:59] VITALS: BP 108/69; PULSE 76; RESP 16; O2SAT 97
--- NOTE | 2021-11-24 18:32 | PC.NURSE ---
Dr Yanes sent pt for psych eval. Pt is refusing psych eval - eda HI or SI. She also states that she does not to intend to harm her child.
--- NOTE | 2021-11-24 18:50 | ED_ITS ---
HPI - Arrhythmia/Palpitations General: Chief Complaint: Arrhythmia/Palpitations Stated Complaint: heart issues Time Seen by Provider: 11/24/21 18:08 Source: patient and family Limitations: no limitations History of Present Illness: 26-year-old female who is 25 weeks gestation. She was evaluated in OB first. Her certified juvenile probation officer sent her here for evaluation. He was worried about her mental health I believe. She refuses psychiatric evaluation here. She says that she has anxiety. She is not taking her Lexapro, because she does not like to take medication while she is . She has been quite anxious lately, and gets palpitations when she is anxious. Her is with her, and notes that she seems to get these symptoms when things do not go as she expects them to go. She denies suicidality. She denies homicidality, including harming her unborn baby. She sees a therapist at [facility], and has appointment this coming week. MD complaint: heart racing and palpitations Onset (ago): week(s) Duration: intermittent Severity: moderate Associated symptoms: Reports anxiety and short of breath; Deny cough, diaphoresis, muscle cramps, nausea, sense of impending doom or vomiting Review of Systems Const: Denies: diaphoresis Eyes: Denies: change in vision Card: Reports: palpitations; Denies: chest pain or irregular heart rhythm Resp: Reports: dyspnea; Denies: productive cough or non-productive cough GI: Denies: abdominal pain, nausea or vomiting : Denies: dysuria Musc: Denies: muscle cramps Psych: Reports: anxiety PFS ED PFSH: Medical History Depression with anxiety Neurogenic bladder Psychiatric care Family History Grandmother Diabetes maternal Breast cancer maternal Father Hypercholesteremia Social History Smoking and tobacco status: former smoker Quit status (tobacco): has quit using tobacco Year quit tobacco: 2018 Former quit date comment: Quit age 24. Most smoked 1/2 ppd. Started age 18. Second hand smoke exposure: No Alcohol intake: never Adopted: No Caregiver/support person: No Lives independently: No Marital status: Current occupational status: unemployed History of recent travel: No Additional social history: well balanced diet Female Reproductive History: Date of last menstrual period: 03/31/19 Para: 2 Spontaneous abortions: Yes (1) Physical Exam Const: COMMON NORMALS: no acute distress GENERAL APPEARANCE: cooperative and comfortable; not ill appearing and not frail appearing NUTRITIONAL APPEARANCE: thin HENMT: COMMON NORMALS: normocephalic, atraumatic and Normal external nose present HEAD & SCALP: normocephalic and atraumatic NOSE: Normal external nose present Eye: COMMON NORMALS: Equal, round and reactive pupils present, EOMs intact bilaterally and conjunctivae normal CONJUNCTIVA: Yes conjunctivae normal PUPIL: Yes Equal, round and reactive pupils present Neck/C-Spine: COMMON NORMALS: full ROM Chest: CHEST: Yes Symmetrical chest wall rise Resp: COMMON NORMALS: normal respiratory effort, No use of accessory muscles and clear to auscultation bilaterally AUSCULTATION: clear to auscultation bilaterally Cardio: COMMON NORMALS: regular rate and regular rhythm RATE: regular rate RHYTHM: regular rhythm GI: COMMON NORMALS: Normal to inspection, nondistended, normoactive bowel sounds present INSPECTION: Yes gravid abdomen Extremity: COMMON NORMALS: no pedal edema Neuro: SHAREE COMA SCALE: document GCS findings Sharee coma scale eye opening: Spontaneous [place] coma scale verbal response: Orientated [place] coma scale motor response: Obey commands Sharee coma scale total score: 15 Psych: COMMON NORMALS: mental status grossly normal, Normal thought process present, cooperative and speech normal APPEARANCE: Yes grossly normal ATTITUDE: Yes calm ACTIVITY/MOTOR BEHAVIOR: Yes appropriate eye contact SPEECH: Yes normal speech THOUGHT PROCESS: Normal thought process present THOUGHT CONTENT: Yes Normal thought content present, No Suicidality present and No Homicidality present ATTENTION/CONCENTRATION: Yes attention grossly intact and Yes concentration grossly intact MEMORY/COGNITION: Yes memory grossly intact and Yes cognition grossly intact INSIGHT: Fair insight present (Psych) JUDGEMENT: Fair judgement present (Psych) Skin: COMMON NORMALS: no rashes or lesions noted GENERAL SKIN EXAM: no rashes or lesions noted Course Vital Signs: Vital signs: Vital Signs Temperature 98.8 F 11/24/21 16:04 Pulse Rate 76 11/24/21 17:59 Respiratory Rate 16 11/24/21 17:59 Blood Pressure 108/69 11/24/21 17:59 Pulse Oximetry 97 11/24/21 17:59 Oxygen Delivery Me thod 11/24/21 17:59 MDM - Arrhythmia/Palpitations Medical Decision Making EKG shows a normal sinus rhythm with a rate of 70, normal axis, normal intervals, no acute ST changes. She has been in sinus on the monitor. Her blood pressure is 108/57. She is having no chest pain. No hypoxia. No swelling. She denies suicidal ideations. She denies homicidal ideations including wishes to harm her unborn child. Her is with her and is supportive. She had behavioral health appointment this coming week she refuses psychiatric evaluation here. She will be allowed discharge Discharge Plan Discharge Patient Disposition: Home Clinical Impression: Palpitations, Anxiety Condition: Stable Prescriptions: No Action prenat.vits,viji,uej-julz-deacy Tablet 1 tab PO DAILY Discharge Orders: Discharge ED (Routine); Ordered 11/24/21 Ordered By: Christophe Frias Referrals: Manuel Arvizu, MUSEUM GUIDE-C [Primary Care Provider] - Patient Instructions: Heart Palpitations (ED), Anxiety (ED) Activity Restrictions/Additional Instructions: Return for worsening anxiety, palpitations, etc. Return for any thoughts or wishes to harm your self or anyone else. Follow-up with behavioral health this week as scheduled. Coding Level of Care Code ED Teacher Counselor for Paula Fabian Exam Comprehensive
--- NOTE | 2021-11-24 19:09 | PC.NURSE ---
Report given to JEREMIAH Angela
== END 2021-11-24 19:45 | disposition home or self-care (01) ==
PROVIDERS: Emergency Provider Emergency Medicine; PCP Nurse Practitioner
DX: O99.342 Other mental disorders complicating pregnancy, second trimester (principal); F41.9 Anxiety disorder, unspecified; O26.892 Other specified pregnancy related conditions, second trimester; R00.2 Palpitations; Z87.891 Personal history of nicotine dependence; Z3A.25 25 weeks gestation of pregnancy
CPT/HCPCS: 99283

== ENCOUNTER 2022-01-09 20:23 | Outpatient (CLI) | payer BC, SELFPAY ==
[2021-11-24 15:22] VITALS: RESP 16
[2022-01-09] VITALS (10 sets, daily range): BP systolic 101–111; BP diastolic 59–69; PULSE 72–87; RESP 17; BMI 24.1
[2022-01-09 21:36] LABS: Bilirubin Urine Neg (Negative); Blood Urine Neg (Negative); Glucose Urine UA Norm (Normal); Ketones Urine 1+ (Negative); Leukocyte Esterase Urine 2+ (Negative); Nitrate Urine Negative (Negative); Protein Urine Neg (Negative); Urine Appearance SL Hazy (CLEAR); Urine Color Light Yellow (Yellow); Urobilinogen Urine Norm (Negative); pH Urine 7 (5-7)
[2022-01-09 21:39] LABS: Add Urine Culture? No; Bacteria Urine 1+ /hpf; RBC Urine 0-4 /hpf (0-2); Squamous Epithelial Cell Urine 0-4 /hpf (0-5)
== END 2022-01-09 23:12 | disposition home or self-care (01) ==
LOC: OPOB 20:24 → OBGYN 20:26 → OPOB 20:30 → OBGYN 20:33
PROVIDERS: PCP Nurse Practitioner; Visit Provider Family Medicine
DX: O26.899 Other specified pregnancy related conditions, unspecified trimester (principal); Z3A.00 Weeks of gestation of pregnancy not specified; R10.9 Unspecified abdominal pain
CPT/HCPCS: 59025; 81001; 99211

== ENCOUNTER 2022-02-04 04:40 | Inpatient (IN) | payer BC, MEDICAID, SELFPAY ==
[2022-02-04] VITALS (34 sets, daily range): BP systolic 87–120; BP diastolic 52–81; PULSE 66–98; RESP 14–16; TEMP 36.1–36.7; O2SAT 99–100; BMI 25.3
[2022-02-04 05:12] LABS: Basophils % 0.3 %; Eosinophils # 0.2 10^3/uL (0.0-0.8); Eosinophils % 1.8 %; Hematocrit 37.5 % (37.0-47.0); Hemoglobin 12.4 g/dL (11.5-15.3); Lymphocytes # 2.2 10^3/uL (0.8-4.8); Lymphocytes % 19.6 %; Mean Corpuscular HGB Conc 33.1 g/dL (30.0-36.0); Mean Corpuscular Hemoglobin 28.6 pg (28.0-34.0); Mean Corpuscular Volume 86.6 fl (81-99); Mean Platelet Volume 10.5 fL (7.4-10.4); Monocytes # 0.7 10^3/uL (0.2-0.9); Monocytes % 6.2 %; Neutrophils # 7.94 10^3/uL (1.8-7.7); Neutrophils % 71.6 %; Nucleated Red Blood Cells % 0 %; Platelet Count 330 10^3/cmm (130-400); Red Blood Count 4.33 10^6/uL (4.1-5.3); Red Cell Distribution Width 13.3 % (12.1-15.1); White Blood Count 11.1 10^3/uL (4.0-10.0)
[2022-02-04] MEDS: lactated ringers 1,000 ML 999 ML IV ×2 (05:15→06:21)
--- NOTE | 2022-02-04 06:26 | P.HP_ITS ---
Providers/Chief Complaint Admitting Physician: Natalio Yanes MD Primary Care Provider: Manuel Arvizu, IRVIN-Alcira HPI ST[address] LIGHT SERVICER SUPERVISOR History of Present Illness Monica Quezada is a 27 year old 5 para 3-0-1-3 female at 39 weeks estimated gestational age presenting for a section and tubal ligation. After the patient's last vaginal delivery, she had extensive problems with her urethra that required her to self cath for several months, and to be treated and evaluated by urology due to the resulting neurogenic bladder. He still has some residual symptoms as a result of the urethral trauma she had after her vaginal delivery. We discussed the patient's options including proceeding with another vaginal delivery versus a section. Given the challenges she had with her urethra last time, we decided to proceed with a section. We discussed the risks and benefits of each option. We discussed the risks of bleeding, infection, and damage intra-abdominal organs associate with a C- section. We also discussed the risks including the 1 and 200 chance of becoming again and the increased risk of ectopic associated with a tubal ligation. Despite these concerns, the patient has decided that she would rather have a within consider the risks of vaginal delivery. Present Details : 5 Para: 3 Date of Last Menstrual Period: 03/31/19 Calculated Date of Delivery: 01/05/20 Gestational Age Based on Last Menstrual Period: 148 Labs Rubella: Immune GBS: Negative Review of Systems General: Reports: 10 or more systems reviewed and unremarkable except in HPI and below Const: Reports: fatigue; Denies: fever(s) Eyes: Denies: change in vision Card: Denies: chest pain Musc: Reports: back pain Oscar/Lymph: Denies: easy bruising Medications/Allergies Home Medications Medication Instructions Recorded Confirmed Last Taken Type prenat.vits,viji,fmv-rbdj-huwhg 1 tab PO DAILY 09/04/21 12/12/21 10/15/21 17:00 History sertraline 50 mg tablet (Zoloft) 50 mg PO DAILY #30 tabs 12/12/21 12/12/21 Unk nown Rx Allergies Allergy/AdvReac Type Severity Reaction Status Date / Time latex Allergy ALGY-Rash Verified 12/12/21 11:50 Sulfa (Sulfonamide Allergy ALGY-Hives Verified 12/12/21 11:50 Antibiotics) sulfamethoxazole Allergy ALGY-Rash Verified 12/12/21 11:50 [From Bactrim] trimethoprim [From Bactrim] Allergy ALGY-Rash Verified 12/12/21 11:[address] LIGHT SERVICER SUPERVISOR PFSH: Medical History Depression with anxiety Neurogenic bladder Psychiatric care Family History Grandmother Diabetes maternal Breast cancer maternal Father Hypercholesteremia Social History Smoking and tobacco status: former smoker Quit status (tobacco): has quit using tobacco Year quit tobacco: 2018 Former quit date comment: Quit age 24. Most smoked 1/2 ppd. Started age 18. Second hand smoke exposure: No Smoking risk assessment/counseling performed?: No Alcohol intake: never Desire information about alcohol rehabilitation?: No Counseling given: No Desire information about substance/drug rehabilitation?: No Counseling given: No Adopted: No Caregiver/support person: No Lives independently: No Marital status: Current occupational status: unemployed History of recent travel: No Additional social history: well balanced diet Other Female Reproductive History: Hx Age of Menarche: 13 Duration of menses: 6-7 days Cycle Length: every 28 days Menstrual flow: nor mal/abnormal: normal History History History 3 Term 2 0 Miscarriages/Ectopic 1 Living Children 2 Past Pregnancies Del. Date GA/Weeks Outcome Route Wt Inf Gender Labor Lgth Comp. Anesth esia Location Unknown spontaneous 09/23/14 37 live - full term Vaginal 5 lb 5.5 oz Femal e 30 hours induction [facility] in [place], [place] 04/09/16 38 live - full term Vaginal 6 lb 12.5 oz Male [facility] in [place], [place] Delivery Date: Last Updated by: Sixto Jaimes MD 1st Preg. 2013. Delivery Date: 09/23/14 Last Updated by: Sixto Jaimes MD 2nd Preg. Delivered by Dr. De La Rosa. Complicated by IUGR. Delivery Date: 04/09/16 Last Updated by: Sixto Jaimes MD 3rd Preg. Delivered by Dr. Rodriguez. Vitals/I&O/Wt Last Vital Signs Temp 97.9 F 02/04/22 05:19 Pulse 81 02/04/22 06:08 Resp 16 02/04/22 04:50 BP 106/67 02/04/22 06:08 O2 Del Method 02/04/22 04:35 02/03/22 02/03/22 02/04/22 14:59 22:59 06:59 Intake Total 1000 / 1000 Balance 1000 / 1000 Weight last 48 hrs Weight 134 lb Physical Exam Const: COMMON NORMALS: patient oriented x3 and alert HENMT: COMMON NORMALS: moist oral mucous membranes HEAD & SCALP: normal to inspection Chest: COMMONS NORMALS: normal inspection of the chest Resp: COMMON NORMALS: clear to auscultation bilaterally AUSCULTATION: clear to auscultation bilaterally Cardio: COMMON NORMALS: regular rate and regular rhythm RATE: regular rate RHYTHM: regular rhythm GI: INSPECTION: Yes normal to inspection and Yes other (Gravid) Extremity: COMMON NORMALS: normal to inspection GENERAL: Yes edema (Trace) Neuro: COMMON NORMALS: patient oriented x3, moves all extremities and no sensory deficits noted SENSORIUM/ORIENTATION: Yes alert Psych: COMMON NORMALS: mental status grossly normal Skin: COMMON NORMALS: no rashes or lesions noted GENERAL SKIN EXAM: no rashes or lesions noted Data : 02/04/22 05:06 A&P Assessment and plan (1) Neurogenic bladder: (2) 39 weeks gestation of : We will proceed with a section as well as a bilateral tubal ligation. As previously mentioned the patient I have had multiple conversations about the risks and benefits of proceeding with a versus a vaginal delivery and she and her are confident they want to have a done. (3) Sterilization consult: (4) Urethra disorder: Attestations Medical Necessity Statement*: I anticipate routine and post C- section care. Coding Level of Care Code Acute Architecture Drafter for Paula Fwletha Diagnoses Neurogenic bladder N31.9 39 weeks gestation of Z3A.39 Sterilization consult Z30.09 Urethra disorder N36.9
[2022-02-04] MEDS: metoclopramide 5 mg/mL SDV 2 mL 10 MG IVP (06:55)
[2022-02-04] MEDS: citric acid-sodium citrate 30 mL UDC PO (06:55)
[2022-02-04] MEDS: famotidine 20 mg/2 mL INJ IVP (06:55)
[2022-02-04] MEDS: ceFAZolin 2,000 MG in sodium chloride 0.9% (plus) 50 ML 100 MG IV (06:56)
--- NOTE | 2022-02-04 08:22 | P.OP_ITS ---
Operative Report Date of procedure: February 04, 2022 Pre-op diagnosis: 1. 27-year-old 3 at 39 weeks estimated gestational age 2. History of urethral trauma secondary neurogenic bladder with vaginal delivery. 3. Desire for sterilization Post-op diagnosis: Same Procedure done: 1. Lower transverse section with a intraoperative tubal ligation using a modified Amy technique Specimens removed/disposition: 1. Healthy-appearing male with Apgars of 9 and 9 and weight of 8 pounds 6 ounces 2. Placenta with a three-vessel cord delivered intact 3. Bilateral fallopian tube segments with the right segment being tagged Pathology: Bilateral fallopian tube segments with the right segment being tagged Surgeon: Natalio Yanes Estimated blood loss (mL): 1,000 Complications: None Procedure: The patient was brought back to the operating room where she was prepped and draped in usual sterile fashion. Anesthesia was found to be adequate. A lower transverse skin incision was then made with a #10 blade. I then dissected down to the underlying subcutaneous tissue until arriving at the prerectal fascia. The fascia was then nicked with the scalpel bilaterally. The fascial incisions were then carried laterally with Ybarra scissors. Attention was then turned to the superior aspect of the incision which was grasped with kochers and tented up away from the underlying rectus abdominis muscles. The muscles were then dissected away from the fascia manually, and later with Ybarra scissors. Attention was then turned to the inferior aspect of the incision, and the fascia was dissected away from the underlying muscle in similar fashion. The rectus abdominis muscles were then spread manually. The peritoneum was entered manually. Excellent visualization of the uterus was noted. A lower transverse uterine incision was then made with a #10 blade. Upon arriving at the intrauterine cavity, the uterine incision was then extended manually. The infant was noted to be in vertex position. After applying fundal pressure and extending the uterine incision, the head was still not close to delivering. Rather than extending the incision further, I elected to apply a Kiwi vacuum. The baby was easily delivered with a Kiwi vacuum. Total time of application was about 20 seconds. There was no meconium. There was copious amounts of amniotic fluid. There was no nuchal cord. The cord was cut and clamped. The baby was then handed to the waiting nurse. The placenta was removed intact. The uterus was externalized. The intrauterine cavity was cleansed of any remaining debris. The uterine incision was reapproximated in 2 layers. The first layer was performed with 0 Vicryl in a running locked stitch. The second layer was an imbricating stitch also using 0 Vicryl. Attention was then turned to the right fallopian tube which was ligated cut and cauterized with 0 chromic in a modified [place] technique. Attention was then turned to the left fallopian tube which was likewise ligated cut and cauterized in similar fashion. The uterus was replaced into the abdomen. The peritoneum was then irrigated with warm saline. I reexamined the uterine incision and found it to be hemostatic. The rectus abdominis muscles were then reapproximated using 0 Vicryl in a running stitch. The fascia was then reapproximated using 0 Vicryl in running stitch. The skin was reapproximated using hudson. A sterile dressin g was placed. All counts were correct x2. Both the mother and baby were in stable condition.
[2022-02-04] MEDS: docusate sodium 100 mg Capsule PO ×2 (09:43→20:16)
[2022-02-04] MEDS: ondansetron 2 mg/ML SDV 2 mL 4 MG IVP ×2 (09:43→14:00)
[2022-02-04] MEDS: HYDROcodone-acetaminophen 5-325 mg Tablet PO ×3 (09:44→21:37)
--- NOTE | 2022-02-04 09:44 | PC.NURSE ---
pt in OR
[2022-02-04] MEDS: dextrose 5%-lactated ringers 1,000 ML 125 ML IV (12:12)
[2022-02-04] MEDS: ketorolac 30 mg/mL INJ IVP ×2 (13:59→20:16)
[2022-02-04] MEDS: simethicone 80 mg Chew PO (14:00)
[2022-02-04 20:42] LABS: Hematocrit 28.2 % (37.0-47.0); Hemoglobin 9.4 g/dL (11.5-15.3); Mean Corpuscular HGB Conc 33.3 g/dL (30.0-36.0); Mean Corpuscular Hemoglobin 28.9 pg (28.0-34.0); Mean Corpuscular Volume 86.8 fl (81-99); Mean Platelet Volume 10.6 fL (7.4-10.4); Platelet Count 283 10^3/cmm (130-400); Red Blood Count 3.25 10^6/uL (4.1-5.3); Red Cell Distribution Width 13.3 % (12.1-15.1); White Blood Count 17.3 10^3/uL (4.0-10.0)
[2022-02-05] MEDS: HYDROcodone-acetaminophen 5-325 mg Tablet PO ×3 (02:13→12:58)
[2022-02-05 02:17] VITALS: TEMP 36.4
[2022-02-05 02:19] VITALS: BP 99/55; PULSE 84
[2022-02-05] MEDS: ketorolac 30 mg/mL INJ IVP (03:06)
--- NOTE | 2022-02-05 07:05 | P.DS_ITS ---
Discharge Providers AERODYNAMICS ENGINEER Date of Admission: 02/04/22 04:40 Date of Discharge: 02/05/22 Attending Provider at Admission: Natalio Yanes MD Attending Provider at Discharge: Natalio Yanes MD Primary Care Provider: JOSE L Fabian Diagnoses at Discharge Discharge Diagnosis (1) Neurogenic bladder: Status: Acute (2) 39 weeks gestation of : Status: Resolved (3) Sterilization consult: Status: Acute (4) Urethra disorder: Status: Acute Hospital Course Hospital Course The patient presented to the hospital yesterday for a scheduled . The was unremarkable. The patient's course was also unremarkable. Her bleeding was within normal limits. Her pain was well controlled. She is ambulated multiple times. She passed flatus last night. She tolerated a regular diet this morning. There have been no concerns throughout her hospital stay. Information Peripartum Data: Infant Delivery Method: Physical Exam Narrative: She is in no acute distress Lungs are clear auscultation bilaterally Her heart has a regular rate and rhythm Her fundus is below the umbilicus and firm Her dressing is clean, dry and intact Her extremities have trace edema Urinary Catheter Management: Lassiter Latex Free: Cath Placed During This Visit: yes, but has since been removed by the nurse Reason for Continuing Indwelling Catheter: Decision to DC Catheter Date Urinary Catheter Removed: 02/04/22 Time Urinary Catheter Discontinued: 22:10 History History History 3 Term 2 0 Miscarriages/Ectopic 1 Living Children 2 Past Pregnancies Del. Date GA/Weeks Outcome Route Wt Inf Gender Labor Lgth Comp. Anesth esia Location Unknown spontaneous 09/23/14 37 live - full term Vaginal 5 lb 5.5 oz Femal e 30 hours induction [facility] in [place], [place] 04/09/16 38 live - full term Vaginal 6 lb 12.5 oz Male [facility] in [place], [place] Delivery Date: Last Updated by: Sixto Jaimes MD 1st Preg. 2013. Delivery Date: 09/23/14 Last Updated by: Sixto Jaimes MD 2nd Preg. Delivered by Dr. De La Rosa. Complicated by IUGR. Delivery Date: 04/09/16 Last Updated by: Sixto Jaimes MD 3rd Preg. Delivered by Dr. Rodriguez. Discharge Data Studies Completed and Pending Laboratory Results WBC 17.3 10^3/uL (4.0-10.0) H 02/04/22 20:25 RBC 3.25 10^6/uL (4.1-5.3) L 02/04/22 20:25 Hgb 9.4 g/dL (11.5-15.3) L 02/04/22 20:25 Hct 28.2 % (37.0-47.0) L 02/04/22 20:25 MCV 86.8 fl (81-99) 02/04/22 20:25 MCH 28.9 pg (28.0-34.0) 02/04/22 20:25 MCHC 33.3 g/dL (30.0-36.0) 02/04/22 20:25 RDW 13.3 % (12.1-15.1) 02/04/22 20:25 Plt Count 283 10^3/cmm (130-400) 02/04/22 20:25 MPV 10.6 fL (7.4-10.4) H 02/04/22 20:25 Neut % (Auto) 71.6 % 02/04/22 05:06 Lymph % (Auto) 19.6 % 02/04/22 05:06 [place] % (Auto) 6.2 % 02/04/22 05:06 Eos % (Auto) 1.8 % 02/04/22 05:06 Baso % (Auto) 0.3 % 02/04/22 05:06 Neut # (Auto) 7.94 10^3/uL (1.8-7.7) H 02/04/22 05:06 Lymph # (Auto) 2.2 10^3/uL (0.8-4.8) 02/04/22 05:06 [place] # (Auto) 0.7 10^3/uL (0.2-0.9) 02/04/22 05:06 Eos # (Auto) 0.2 10^3/uL (0.0-0.8) 02/04/22 05:06 Baso # (Auto) 0.0 10^3/uL (0.0-0.1) 02/04/22 05:06 Nucleated RBC % (auto) 0 % 02/04/22 05:06 Nucleated RBCs # 0.0 /100WBC 02/04/22 05:06 Vitals Last Vital Signs Temp 97.5 F L 02/05/22 02:17 Pulse 84 02/05/22 02:19 Resp 14 02/04/22 08:55 BP 99/55 02/05/22 02:19 Pulse Ox 99 02/04/22 08:55 O2 Del Method 02/04/22 08:55 Discharge Plan Discharge Patient Disposition: Home Condition: Stable Prescriptions: New ibuprofen 800 mg Tablet 800 mg PO TID Qty: 45 0RF hydrocodone-acetaminophen 5-325 mg Tablet 1 tab PO Q6H PRN (Reason: Moderate To Severe Pain) Qty: 28 0RF docusate sodium 100 mg Capsule 100 mg PO BID Qty: 10 0RF Continued prenat.vits,viji,qud-mvjd-qadzm Tablet 1 tab PO DAILY Discharge Orders: Discharge Order (Routine); Ordered 02/05/22 Ordered By: Natalio Yanes Referrals: Natalio Yanes MD [Physician] - 4-7 days (Set an appointment for next Friday or Friday. The patient said she may already have an appointment, and if she does we can keep that.) Discharge Diet: Usual diet Discharge Activity: Limit activity as instructed Patient Instructions: Depression (DC), Bleeding (DC), Preeclampsia and Eclampsia After Delivery (GEN), Tubal Ligation (DC), Hemorrhage (DC), OB - Farzana/Christine, OB Discharge Report, OB Food/Drug Interaction Guide, OB Care at Home, Opioid Safety, OB Home Care Discharge Attestations AERODYNAMICS ENGINEER Time Spent in Discharge Care*: less than 30 min Coding Level of Care Code Acute Rescue Instructor for Chg Fwd Diagnoses Neurogenic bladder N31.9 39 weeks gestation of Z3A.39 Sterilization consult Z30.09 Urethra disorder N36.9
[2022-02-05] MEDS: prenatal vitamin Capsule 1 CAP PO (08:36)
[2022-02-05] MEDS: ferrous sulfate EC 325 mg Tablet PO (08:37)
[2022-02-05] MEDS: docusate sodium 100 mg Capsule PO (08:37)
[2022-02-05 08:43] VITALS: BP 113/60; PULSE 77
[2022-02-05 09:01] VITALS: RESP 17
[2022-02-05 13:12] VITALS: BP 110/57; PULSE 88
[2022-02-05 13:30] VITALS: BP 110/57; PULSE 88
== END 2022-02-05 13:30 | disposition home or self-care (01) | DRG 785 ==
PROVIDERS: Admitting Provider Family Medicine; PCP Nurse Practitioner; Visit Provider Family Medicine
PROC: 10D00Z1 Extraction of Products of Conception, Low, Open Approach (ICD-10-PCS; CPT 59514; principal; 2022-02-04 07:00)
DX: O75.89 Other specified complications of labor and delivery (principal); Z3A.39 39 weeks gestation of pregnancy; Z37.0 Single live birth; N31.8 Other neuromuscular dysfunction of bladder; N36.8 Other specified disorders of urethra
CPT/HCPCS: 12345; 36415; 59025; 59409; 85025; 85027; 88302; 96374; 96376; 99211; J0690; J1885; J2274; J2405; J2590; J2765; J3010; J3490; J7120; J7121

== ENCOUNTER 2022-02-17 10:58 | Emergency (ER) | payer BC, MEDICAID, SELFPAY ==
[2022-02-17 11:11] VITALS: BP 130/78; PULSE 68; RESP 16; TEMP 36.7; O2SAT 99
--- NOTE | 2022-02-17 11:29 | W.ED.ABDPA2 ---
HPI - Abdominal Pain General: Chief Complaint: Abdominal Pain Stated Complaint: left side pain after Time Seen by Provider: 02/17/22 11:27 History of Present Illness: Ms. Quezada is a 27-year-old with history of (02/04/2022) presenting to the emergency department due to episode of abdominal pain with increased vaginal bleeding. She reports onset of symptoms spontaneously last night associated with severe pain in the left abdomen and a small increase in still light vaginal bleeding with 1 clot. Pain was severe and associated with nausea and lightheadedness possibly associated with seeing blood. Has currently resolved. Denies frequent episodes of similar. Denies signs of systemic illness. No other specific changes in health, exacerbating, or alleviating factors identified. Onset (ago): hour(s) Pain Consistency: now resolved Location: LLQ Severity: severe Radiation: none Exacerbating factors: movement Relieving factors: nothing Context: recent surgery/procedure Associated Symptoms: Reports nausea Related Data: Date of Last Menstrual Period: 03/31/19 Review of Systems General: Reports: 10 or more systems reviewed and unremarkable except in HPI and below GI: Reports: nausea PFSH ED PFSH: Medical History Depression with anxiety Neurogenic bladder Psychiatric care Family History Grandmother Diabetes maternal Breast cancer maternal Father Hypercholesteremia Social History Smoking and tobacco status: former smoker Quit status (tobacco): has quit using tobacco Year quit tobacco: 2019 Former quit date comment: Quit age 24. Most smoked 1/2 ppd. Started age 18. Second hand smoke exposure: No Smoking risk assessment/counseling performed?: No Alcohol intake: never Desire information about alcohol rehabilitation?: No Counseling given: No Desire information about substance/drug rehabilitation?: No Counseling given: No Adopted: No Caregiver/support person: No Lives independently: No Marital status: Current occupational status: unemployed History of recent travel: No Additional social history: well balanced diet Female Reproductive History: Date of last menstrual period: 03/31/19 Para: 2 Spontaneous abortions: Yes (1) Physical Exam Const: COMMON NORMALS: alert GENERAL APPEARANCE: cooperative and well developed HENMT: COMMON NORMALS: normocephalic and atraumatic HEAD & SCALP: normocephalic and atraumatic Eye: COMMON NORMALS: conjunctivae normal CONJUNCTIVA: Yes conjunctivae normal SCLERA: sclerae normal Neck/C-Spine: COMMON NORMALS: supple GENERAL: Yes trachea midline Resp: COMMON NORMALS: clear to auscultation bilaterally EFFORT & INSPECTION: Yes able to speak in complete sentences AUSCULTATION: clear to auscultation bilaterally Cardio: COMMON NORMALS: regular rate and regular rhythm RATE: regular rate RHYTHM: regular rhythm GI: COMMON NORMALS: Soft to palpation PALPATION: Yes Soft to palpation and No Tenderness to palpation present (GI) PERCUSSION: normal to percussion OTHER: Surgical incision appears well-healing Extremity: GENERAL: Yes normal exam except as noted and No edema Neuro: COMMON NORMALS: moves all extremities SENSORIUM/ORIENTATION: Yes alert and No Orientation impaired Psych: COMMON NORMALS: mental status grossly normal and Normal thought process present THOUGHT PROCESS: Normal thought process present Course Vital Signs: Vital signs: Vital Signs Temperature 98.0 F 02/17/22 11:11 Pulse Rate 68 02/17/22 11:11 Respiratory Rate 16 02/17/22 11:11 Blood Pressure 130/78 02/17/22 11:11 Pulse Oximetry 99 02/17/22 11:11 Oxygen Delivery Me thod 02/17/22 11:11 MDM - Abdominal Pain Medical Decision Making 27-year-old lady with history of recent presenting with abdominal pain. Exam as above. No abdominal tenderness to palpation and surgical incision appears well-healing Given benign abdominal exam and current vital signs no indication for laboratory studies at this time. Ultrasound with heterogeneous density within the endometrial cavity without vascularity. Given I discussed with operating physician, almost certainly blood clot and not retained products of conception. Most likely etiology of patient's symptoms is postoperative pain and bleeding. The results of ED evaluation were discussed with the patient including prescriptions and/or symptomatic cares (if applicable) including appropriate and responsible use, followup plan, and return precautions. The patient verbalized understanding and felt safe for discharge. Medical Records I reviewed the patient's medical records. Lab Data I reviewed the patient's lab results. Labs/Radiology: Radiology Impressions Pelvis Ultrasound 02/17/22 11:37 IMPRESSION: Heterogeneous density within the endometrial cavity without internal vascularity. This is consistent with blood clot and or non vascularized retained products of conception. Discharge Plan Discharge Patient Disposition: Home Clinical Impression: Abdominal pain, Post-operative state Condition: Stable Prescriptions: No Action prenat.vits,viji,lle-[id number] Tablet 1 tab PO DAILY ibuprofen 800 mg Tablet 800 mg PO TID Qty: 45 0RF hydrocodone-acetaminophen 5-325 mg Tablet 1 tab PO Q6H PRN (Reason: Moderate To Severe Pain) Qty: 28 0RF docusate sodium 100 mg Capsule 100 mg PO BID Qty: 10 0RF Discharge Orders: Discharge ED (Routine); Ordered 02/17/22 Ordered By: Charles Mills Referrals: Manuel Arvizu, [employer] SALES PROFESSIONAL-C [Primary Care Provider] - Discharge Diet: Usual diet Discharge Activity: Limit activity as instructed Patient Instructions: Abdominal Pain (ED) Activity Restrictions/Additional Instructions: Thank you for visiting the emergency department. You were seen and evaluated for abdominal pain and bleeding in the postoperative state. Given improvement in symptoms, physical exam, and imaging the most likely cause of your symptoms is normal postoperative healing process. Please follow-up with Dr. Yanes this week. Return to the emergency department for recurrent symptoms, uncontrolled pain, heavy vaginal bleeding, or anything else that you are concerned about a feel needs emergency department evaluation. Coding Level of Care Code ED Soft Top Installer for Paula Fabian Exam Comprehensive
--- NOTE | 2022-02-17 11:37 | USR_ITS ---
PROCEDURE INFORMATION: Exam: US Nonobstetric Pelvis; Complete Exam date and time: 02/17/2022 11:48 AM Age: 27 years old Clinical indication: Other: Bleeding; Prior surgery; Surgery date: <1 month; Surgery type: C -section; Additional info: Post c section, pain L sided, increased bleeding mildly TECHNIQUE: Imaging protocol: Transabdominal pelvic nonobstetric ultrasound. Complete exam. Real time ultrasound with image documentation. COMPARISON: US pelvic limited [id number] 02/10/2020 8:31 AM FINDINGS: Uterus: Uterus measures 12.6 x 6.3 x 8.8 cm. There is heterogeneous density within the endometrial cavity without internal vascularity. Right ovary/adnexa: Right ovary measures 3.4 x 3.2 x 2.8 cm. Normal vascularity. No mass. Left ovary/adnexa: Left ovary measures 2.8 x 3.0 x 3.0 cm. Normal vascularity. No mass. Intraperitoneal space: There is small amount of free fluid in the cul-de-sac. Urinary bladder: Normal. US/US pelvic complete* [id number] IMPRESSION: Heterogeneous density within the endometrial cavity without internal vascularity. This is consistent with blood clot and or non vascularized retained products of conception.
--- NOTE | 2022-02-17 14:24 | PC.NURSE ---
This patient was not this nurse's patient. This nurse only layed on eye's on the patient when this nurse discharged them.
== END 2022-02-17 14:25 | disposition home or self-care (01) ==
PROVIDERS: Emergency Provider Emergency Medicine; PCP Nurse Practitioner
DX: R10.9 Unspecified abdominal pain (principal); Z98.890 Other specified postprocedural states
CPT/HCPCS: 76856; 99284

== ENCOUNTER → 2023-01-20 18:42 | Outpatient (BNVA) | payer BC, MEDICAID, SELFPAY | PROVIDERS: PCP Nurse Practitioner; Visit Provider Family Medicine | DX: R50.9 Fever, unspecified (principal) | CPT/HCPCS: 87400 ==

== ENCOUNTER → 2023-06-06 10:07 | Outpatient (BNVA) | payer BC, MEDICAID, SELFPAY | PROVIDERS: PCP Nurse Practitioner; Visit Provider Emergency Medicine | DX: R05.9 Cough, unspecified (principal) | CPT/HCPCS: 87400 ==

== ENCOUNTER 2023-12-13 17:00 | Emergency (ER) | payer BC, MEDICAID, SELFPAY ==
[2023-12-13 17:05] VITALS: BP 126/81; PULSE 72; RESP 14; TEMP 36.7; O2SAT 98
--- NOTE | 2023-12-13 17:19 | ECG_ITS ---
[facility] Test Date: 2023-12-13 Pat Name: Monica Gillis Department: Room: Gender: Female Dictaphone Transcriber: : 1995 Requested By: Jesus Hou Order Number: [id number] [id number] MD: Francisco Gutierrez M.D. Measurements Intervals [place] Rate: 68 P: 78 AK: 152 QRS: 72 QRSD: 87 T: 56 QT: 389 QTc: 415 Interpretive Statements SINUS RHYTHM POSSIBLE LEFT ATRIAL ENLARGEMENT [-0.1mV P-WAVE IN V1/V2] No previous ECG available for comparison Electronically Signed On 12-13-2023 20:06:46 CDT by Francisco Gutierrez M.D. [id number]
--- NOTE | 2023-12-13 17:34 | ED_ITS ---
Documented by User: Jesus Hou 12/13/23 17:45 HPI - Weakness 2 General: Chief complaint: Weakness Stated complaint: dizzy, head pressure and nausea Time Seen by Provider: 12/13/23 17:33 Source: patient Mode of arrival: ambulatory Limitations: no limitations History of Present Illness: This patient presents to the emerged part due to of feeling weak over the past week. She states that she has some associated pressure at the top of her head but denies any vertigo symptoms and states that she just feels weak with changing position. She denies any focal motor weakness, numbness, difficulty with speech. She denies any overt headache but just pressure sensation of top of head. She states that she has heavy periods and her period just started on Friday concomitant with her onset of her current presenting symptoms. She states her periods are usually anywhere from 7 to 10 days and she requires a heavy pad. There is no clots in maintenance. Well however. He states she has not been recently ill with cough fever congestion sore throat etc. She states she is not had any recent travel or known exposure to infectious disease. She has had 4 children 3 right vaginal delivery and 1 by section without complications. She states her oral intake has been normal for her. She denies any vomiting or diarrhea or dysuria. No associated palpitations. She states her weight has been generally stable at her current body weight since she has reached adulthood MD Complaint: generalized weakness Associated symptoms: Denies chest pain, chills, melena, dysuria, fever(s), headache(s), nausea or vomiting Review of Systems 2 Const: Denies: fever(s), chills, change in appetite or change in weight ENMT: Denies: throat pain, odynophagia, nasal discharge or nasal congestion Card: Reports: lightheadedness; Denies: chest pain or irregular heart rhythm Resp: Denies: dyspnea, productive cough or non-productive cough GI: Denies: abdominal pain, nausea, vomiting, diarrhea, hematochezia or melena : Denies: flank pain, difficulty voiding, dysuria or urinary frequency Musc: Denies: neck pain, back pain, extremity pain or extremity swelling Neuro: Denies: headache(s), numbness in extremities, weakness in extremities or vertigo Psych: Denies: anxiety or depression PFS ED 2 PFSH: Medical History Acute rhinosinusitis Generalized anxiety disorder Dyspareunia in female Contraception management Neurogenic bladder Depression with anxiety Family History Grandmother Diabetes maternal Breast cancer maternal Father Hypercholesteremia Social History Smoking and tobacco/nicotine status: unknown if used tobacco/nicotine Female Reproductive History: Date of last menstrual period: 12/08/23 Para: 2 Spontaneous abortions: Yes (1) Physical Exam 2 Narrative: EXAM NARRATIVE: She is thin female who responds appropriately to questions. Appears to be in no acute distress makes good eye contact. Const: COMMON NORMALS: no acute distress, patient oriented x3 and alert N UTRITIONAL APPEARANCE: thin HENMT: COMMON NORMALS: normocephalic, EAC's normal, TM's normal bilaterally, Normal nasal mucous membranes and turbinates present, moist oral mucous membranes and oropharynx normal HEAD & SCALP: normocephalic FACE & SINUS: face symmetric NOSE: Normal nasal mucous membranes and turbinates present EXTERNAL AUDITORY CANAL: EAC's normal TYMPANIC MEMBRANE: TM's normal bilaterally Eye: COMMON NORMALS: Equal, round and reactive pupils present, EOMs intact bilaterally (No nystagmus) and conjunctivae normal CONJUNCTIVA: Yes conjunctivae normal PUPIL: Yes Equal, round and reactive pupils present Neck/C-Spine: COMMON NORMALS: full ROM, no lymphadenopathy, no JVD and Thyroid normal THYROID: Thyroid normal Chest: COMMONS NORMALS: normal inspection of the chest Resp: COMMON NORMALS: normal respiratory effort, No use of accessory muscles and clear to auscultation bilaterally EFFORT & INSPECTION: Yes able to speak in complete sentences AUSCULTATION: clear to auscultation bilaterally Cardio: COMMON NORMALS: no JVD, regular rate, regular rhythm, No murmurs present (Cardio) and Peripheral pulses 2+ throughout RATE: regular rate R HYTHM: regular rhythm PERIPHERAL PULSES: Peripheral pulses 2+ throughout GI: COMMON NORMALS: Normal to inspection, nondistended, normoactive bowel sounds present, Soft to palpation and non-tender PALPATION: Yes Soft to palpation : COMMON NORMALS: Yes no CVA tenderness BLADDER/KIDNEY EXAM: Yes no CVA tenderness Back/Pelvis: COMMON NORMALS: no CVA tenderness, thoracic and lumbar spine normal to inspection, no thoracic nor lumbar tenderness and thoraco-lumbar ROM normal Extremity: COMMON NORMALS: normal to inspection, full ROM, no calf tenderness and no pedal edema Neuro: COMMON NORMALS: patient oriented x3, moves all extremities, no focal motor deficits and no sensory deficits noted SENSORIUM/ORIENTATION: Yes alert COORDINATION/BALANCE: Romberg test negative SPEECH: speech normal GAIT: Yes Normal gait present MOTOR EXAM: 5/5 motor strength present throughout Psych: COMMON NORMALS: mental status grossly normal Skin: COMMON NORMALS: no rashes or lesions noted, no wounds and turgor normal GENERAL SKIN EXAM: no rashes or lesions noted and turgor normal Course 2 Reevaluation(s): Reevaluation #1: This patient was initially evaluated by me prior to off going shift and will be turned over to Dr. Paulson overnight physician for further evaluation and disposition. Time: 17:44 Vital Signs: Vital signs: Vital Signs Temperature 98.0 F 12/13/23 17:05 Pulse Rate 66 12/13/23 18:06 Respiratory Rate 14 12/13/23 17:05 Blood Pressure 121/76 12/13/23 18:06 Pulse Oximetry 98 12/13/23 18:06 Oxygen Delivery Me thod Room Air 12/13/23 18:06 MDM - Weakness Medical Decision Making Patient presented as noted in the history of present illness. Her symptoms seem to be nonspecific and did not just a central nervous system etiology to her presentation. Certainly sounds like she may be experiencing palpitations, or perhaps she has an anemia related to her menorrhagia. Her clinical examination does not reveal any focal findings at this time. Will proceed with workup to include CBC TSH chemistries electrocardiogram IV fluids and further evaluation as directed by initial findings. Lab Data 12/13/23 17:44 12/13/23 17:44 Laboratory Results WBC 7.44 10^3/uL (3.29-11.43) 12/13/23 17:44 Corrected WBC Cancelled 12/13/23 15:55 RBC 4.68 10^6/uL (3.85-5.65) 12/13/23 17:44 Hgb 13.50 g/dL (11.27-16.99) 12/13/23 17:44 Hct 40.1 % (36-47) 12/13/23 17:44 MCV 85.7 fl (85-98) 12/13/23 17:44 MCH 28.8 pg (27-33) 12/13/23 17:44 MCHC 33.7 g/dL (30-55) 12/13/23 17:44 RDW 12.6 % (12.1-15.1) 12/13/23 17:44 Plt Count 306 10^3/cmm (157-399) 12/13/23 17:44 MPV 10.8 fL (7.4-10.4) H 12/13/23 17:44 Gran % Cancelled 12/13/23 15:55 Neut % (Auto) 60.5 % 12/13/23 17:44 Lymph % (Auto) 29.7 % 12/13/23 17:44 [place] % (Auto) 5.6 % 12/13/23 17:44 Eos % (Auto) 3.1 % 12/13/23 17:44 Baso % (Auto) 0.8 % 12/13/23 17:44 Neut # (Auto) 4.50 10^3/uL (1.8-7.7) 12/13/23 17:44 Lymph # (Auto) 2.2 10^3/uL (0.8-4.8) 12/13/23 17:44 [place] # (Auto) 0.4 10^3/uL (0.2-0.9) 12/13/23 17:44 Eos # (Auto) 0.2 10^3/uL (0.0-0.8) 12/13/23 17:44 Baso # (Auto) 0.1 10^3/uL (0.0-0.1) 12/13/23 17:44 Absolute Gran (auto) Cancelled 12/13/23 15:55 Nucleated RBC % (auto) 0 % 12/13/23 17:44 Nucleated RBCs # 0.0 /100WBC 12/13/23 17:44 Sodium 136 mmol/L (136-145) 12/13/23 17:44 Potassium 3.8 mmol/L (3.5-5.1) 12/13/23 17:44 Chloride 103 mmol/L (98-107) 12/13/23 17:44 Carbon Dioxide 23 mmol/L (22-29) 12/13/23 17:44 Anion Gap 13.8 (5-19) 12/13/23 17:44 BUN 14 mg/dL (6-20) 12/13/23 17:44 Creatinine 0.5 mg/dL (0.5-0.9) 12/13/23 17:44 GFR Calculation 146.9 mL/min (90-130) H 12/13/23 17:44 Glucose 102 mg/dL (65-115) 12/13/23 17:44 Calculated Osmolality 283 mOsm/kg (285-295) L 12/13/23 17:44 Calcium 9.4 mg/dL (8.5-10.5) 12/13/23 17:44 Total Bilirubin 0.3 mg/dL (0.15-1.2) 12/13/23 17:44 AST 21 U/L (0-32) 12/13/23 17:44 ALT 18 U/L (0-33) 12/13/23 17:44 Alkaline Phosphatase 45 U/L (35-105) 12/13/23 17:44 Total Protein 7.7 g/dL (6.6-8.7) 12/13/23 17:44 Albumin 4.7 g/dL (3.5-5.2) 12/13/23 17:44 Globulin 3.0 g/dL (1.3-4.6) 12/13/23 17:44 TSH 1.44 uIU/mL (0.27-4.20) 12/13/23 17:44 HCG, Qual Negative (Negative) 12/13/23 18:15 Discharge Plan Discharge Patient Disposition: Home Clinical Impression: Generalized weakness Condition: Stable Prescriptions: No Action fluticasone propionate [Flonase Allergy Relief] 50 mcg/actuation spray,suspension 2 spray intranasal DAILY Qty: 16 0RF Rx Instructions: administer into each nostril ondansetron 4 mg tablet,disintegrating 4 mg PO Q6H PRN (Reason: nausea and vomiting) Qty: 14 0RF ibuprofen 800 mg tablet 800 mg PO TID PRN (Reason: pain) Qty: 45 0RF meclizine 12.5 mg tablet 12.5 mg PO TID PRN (Reason: dizziness) Qty: 30 0RF ibuprofen 800 mg Tablet 800 mg PO TID Qty: 45 0RF Discharge Orders: Discharge ED (Routine); Ordered 12/13/23 Ordered By: Wesley Paulson Referrals: Manuel Arvizu, VISUALLY IMPAIRED TEACHER-C [Primary Care Provider] - 4-7 days Discharge Diet: Advance as tolerated Discharge Activity: Resume usual activity Patient Instructions: Weakness (ED) Coding Level of Care Code ED Tub Attendant for Chg Fwd Related Data Previous Rx's Medication Instructions Recorded ibuprofen 800 mg tablet 800 mg PO TID #45 tabs 02/05/22 fluticasone propionate 50 2 spray intranasal DAILY #16 grams 09/30/22 mcg/actuation nasal spray,suspension (Flonase Allergy Relief) ondansetron 4 mg disintegrating 4 mg PO Q6H PRN nausea and 02/25/23 tablet vomiting #14 tabs ibuprofen 800 mg tablet 800 mg PO TID PRN pain #45 tabs 06/06/23 meclizine 12.5 mg tablet 12.5 mg PO TID PRN dizziness #30 12/11/23 tabs Allergies Allergy/AdvReac Type Severity Reaction Status Date / Time latex Allergy ALGY-Rash Verified 12/13/23 17:10 Sulfa (Sulfonamide Allergy ALGY-Hives Verified 12/13/23 17:10 Antibiotics) sulfamethoxazole Allergy ALGY-Rash Verified 12/13/23 17:10 [From Bactrim] trimethoprim [From Bactrim] Allergy ALGY-Rash Verified 12/13/23 17:10 Documented by User: Wesley Paulson MD 12/13/23 18:44 HPI - Weakness 2 General: Chief complaint: Weakness Stated complaint: dizzy, head pressure and nausea Time Seen by Provider: 12/13/23 17:33 PFSH ED 2 PFSH: Medical History Acute rhinosinusitis Generalized anxiety disorder Dyspareunia in female Contraception management Neurogenic bladder Depression with anxiety Family History Grandmother Diabetes maternal Breast cancer maternal Father Hypercholesteremia Social History Smoking and tobacco/nicotine status: unknown if used tobacco/nicotine Course 2 Vital Signs: Vital signs: Vital Signs Temperature 98.0 F 12/13/23 17:05 Pulse Rate 66 12/13/23 18:06 Respiratory Rate 14 12/13/23 17:05 Blood Pressure 121/76 12/13/23 18:06 Pulse Oximetry 98 12/13/23 18:06 Oxygen Delivery Me thod Room Air 12/13/23 18:06 MDM - Weakness Medical Decision Making Patient presented as noted in the history of present illness. Her symptoms seem to be nonspecific and did not just a central nervous system etiology to her presentation. Certainly sounds like she may be experiencing palpitations, or perhaps she has an anemia related to her menorrhagia. Her clinical examination does not reveal any focal findings at this time. Will proceed with workup to include CBC TSH chemistries electrocardiogram IV fluids and further evaluation as directed by initial findings. Patient presents here with generalized weakness blood work here is all normal her vitals are normal as well she is stable for discharge at this time follow-up PCP return if worsening Medical Records I reviewed the patient's medical records. Lab Data I reviewed the patient's lab results. 12/13/23 17:44 12/13/23 17:44 Laboratory Results WBC 7.44 10^3/uL (3.29-11.43) 12/13/23 17:44 Corrected WBC Cancelled 12/13/23 15:55 RBC 4.68 10^6/uL (3.85-5.65) 12/13/23 17:44 Hgb 13.50 g/dL (11.27-16.99) 12/13/23 17:44 Hct 40.1 % (36-47) 12/13/23 17:44 MCV 85.7 fl (85-98) 12/13/23 17:44 MCH 28.8 pg (27-33) 12/13/23 17:44 MCHC 33.7 g/dL (30-55) 12/13/23 17:44 RDW 12.6 % (12.1-15.1) 12/13/23 17:44 Plt Count 306 10^3/cmm (157-399) 12/13/23 17:44 MPV 10.8 fL (7.4-10.4) H 12/13/23 17:44 Gran % Cancelled 12/13/23 15:55 Neut % (Auto) 60.5 % 12/13/23 17:44 Lymph % (Auto) 29.7 % 12/13/23 17:44 [place] % (Auto) 5.6 % 12/13/23 17:44 Eos % (Auto) 3.1 % 12/13/23 17:44 Baso % (Auto) 0.8 % 12/13/23 17:44 Neut # (Auto) 4.50 10^3/uL (1.8-7.7) 12/13/23 17:44 Lymph # (Auto) 2.2 10^3/uL (0.8-4.8) 12/13/23 17:44 [place] # (Auto) 0.4 10^3/uL (0.2-0.9) 12/13/23 17:44 Eos # (Auto) 0.2 10^3/uL (0.0-0.8) 12/13/23 17:44 Baso # (Auto) 0.1 10^3/uL (0.0-0.1) 12/13/23 17:44 Absolute Gran (auto) Cancelled 12/13/23 15:55 Nucleated RBC % (auto) 0 % 12/13/23 17:44 Nucleated RBCs # 0.0 /100WBC 12/13/23 17:44 Sodium 136 mmol/L (136-145) 12/13/23 17:44 Potassium 3.8 mmol/L (3.5-5.1) 12/13/23 17:44 Chloride 103 mmol/L (98-107) 12/13/23 17:44 Carbon Dioxide 23 mmol/L (22-29) 12/13/23 17:44 Anion Gap 13.8 (5-19) 12/13/23 17:44 BUN 14 mg/dL (6-20) 12/13/23 17:44 Creatinine 0.5 mg/dL (0.5-0.9) 12/13/23 17:44 GFR Calculation 146.9 mL/min (90-130) H 12/13/23 17:44 Glucose 102 mg/dL (65-115) 12/13/23 17:44 Calculated Osmolality 283 mOsm/kg (285-295) L 12/13/23 17:44 Calcium 9.4 mg/dL (8.5-10.5) 12/13/23 17:44 Total Bilirubin 0.3 mg/dL (0.15-1.2) 12/13/23 17:44 AST 21 U/L (0-32) 12/13/23 17:44 ALT 18 U/L (0-33) 12/13/23 17:44 Alkaline Phosphatase 45 U/L (35-105) 12/13/23 17:44 Total Protein 7.7 g/dL (6.6-8.7) 12/13/23 17:44 Albumin 4.7 g/dL (3.5-5.2) 12/13/23 17:44 Globulin 3.0 g/dL (1.3-4.6) 12/13/23 17:44 TSH 1.44 uIU/mL (0.27-4.20) 12/13/23 17:44 HCG, Qual Negative (Negative) 12/13/23 18:15 No radiology studies performed this visit Discharge Plan Discharge Patient Disposition: Home Clinical Impression: Generalized weakness Condition: Stable Prescriptions: No Action fluticasone propionate [Flonase Allergy Relief] 50 mcg/actuation spray,suspension 2 spray intranasal DAILY Qty: 16 0RF Rx Instructions: administer into each nostril ondansetron 4 mg tablet,disintegrating 4 mg PO Q6H PRN (Reason: nausea and vomiting) Qty: 14 0RF ibuprofen 800 mg tablet 800 mg PO TID PRN (Reason: pain) Qty: 45 0RF meclizine 12.5 mg tablet 12.5 mg PO TID PRN (Reason: dizziness) Qty: 30 0RF ibuprofen 800 mg Tablet 800 mg PO TID Qty: 45 0RF Discharge Orders: Discharge ED (Routine); Ordered 12/13/23 Ordered By: Wesley Paulson Referrals: Manuel Arvizu, VISUALLY IMPAIRED TEACHER-C [Primary Care Provider] - 4-7 days Discharge Diet: Advance as tolerated Discharge Activity: Resume usual activity Patient Instructions: Weakness (ED) Coding Level of Care Code ED Tub Attendant for Chg Fwd Related Data Previous Rx's Medication Instructions Recorded ibuprofen 800 mg tablet 800 mg PO TID #45 tabs 02/05/22 fluticasone propionate 50 2 spray intranasal DAILY #16 grams 09/30/22 mcg/actuation nasal spray,suspension (Flonase Allergy Relief) ondansetron 4 mg disintegrating 4 mg PO Q6H PRN nausea and 02/25/23 tablet vomiting #14 tabs ibuprofen 800 mg tablet 800 mg PO TID PRN pain #45 tabs 06/06/23 meclizine 12.5 mg tablet 12.5 mg PO TID PRN dizziness #30 12/11/23 tabs Allergies Allergy/AdvReac Type Severity Reaction Status Date / Time latex Allergy ALGY-Rash Verified 12/13/23 17:10 Sulfa (Sulfonamide Allergy ALGY-Hives Verified 12/13/23 17:10 Antibiotics) sulfamethoxazole Allergy ALGY-Rash Verified 12/13/23 17:10 [From Bactrim] trimethoprim [From Bactrim] Allergy ALGY-Rash Verified 12/13/23 17:10
[2023-12-13 17:49] LABS: Basophils # 0.1 10^3/uL (0.0-0.1); Basophils % 0.8 %; Eosinophils # 0.2 10^3/uL (0.0-0.8); Eosinophils % 3.1 %; Hematocrit 40.1 % (36-47); Lymphocytes # 2.2 10^3/uL (0.8-4.8); Lymphocytes % 29.7 %; Mean Corpuscular HGB Conc 33.7 g/dL (30-55); Mean Corpuscular Hemoglobin 28.8 pg (27-33); Mean Corpuscular Volume 85.7 fl (85-98); Mean Platelet Volume 10.8 fL (7.4-10.4); Monocytes # 0.4 10^3/uL (0.2-0.9); Monocytes % 5.6 %; Neutrophils % 60.5 %; Nucleated Red Blood Cells % 0 %; Platelet Count 306 10^3/cmm (157-399); Red Blood Count 4.68 10^6/uL (3.85-5.65); Red Cell Distribution Width 12.6 % (12.1-15.1); White Blood Count 7.44 10^3/uL (3.29-11.43)
[2023-12-13 18:06] VITALS: BP 121/76; PULSE 66; O2SAT 98
[2023-12-13] MEDS: lactated ringers 1,000 ML 999 ML IV (18:07)
[2023-12-13 18:18] LABS: Alanine Aminotransferase 18 U/L (0-33); Albumin Level 4.7 g/dL (3.5-5.2); Alkaline Phosphatase 45 U/L (35-105); Anion Gap 13.8 (5-19); Aspartate Amino Transferase 21 U/L (0-32); Blood Urea Nitrogen 14 mg/dL (6-20); Calcium 9.4 mg/dL (8.5-10.5); Carbon Dioxide 23 mmol/L (22-29); Chloride 103 mmol/L (98-107); Creatinine Clr Calc Pharmacy 121.4234; Glomerular Filtration Rate 146.9 mL/min (90-130); Glucose 102 mg/dL (65-115); Osmolality Calculated 283 mOsm/kg (285-295); Potassium 3.8 mmol/L (3.5-5.1); Sodium 136 mmol/L (136-145); Thyroid Stimulating Hormone 1.44 uIU/mL (0.27-4.20); Total Bilirubin 0.3 mg/dL (0.15-1.2); Total Protein 7.7 g/dL (6.6-8.7)
[2023-12-13 18:35] LABS: HCG Qualitative Urine. Negative (Negative)
[2023-12-13 19:13] VITALS: BP 121/76; PULSE 69; O2SAT 99
== END 2023-12-13 19:15 | disposition home or self-care (01) ==
PROVIDERS: Emergency Medicine; Emergency Provider Emergency Medicine; PCP Nurse Practitioner
DX: R53.1 Weakness (principal)
CPT/HCPCS: 36415; 80053; 81025; 84443; 85025; 93005; 99284; J7120

== ENCOUNTER → 2024-03-02 13:27 | Outpatient (BNVA) | payer BC, MEDICAID, SELFPAY | PROVIDERS: PCP Nurse Practitioner; Visit Provider Registered Nurse Neonatal Intensive Care | DX: R39.9 Unspecified symptoms and signs involving the genitourinary system (principal); B96.89 Other specified bacterial agents as the cause of diseases classified elsewhere | CPT/HCPCS: 81000 ==

== ENCOUNTER → 2024-03-11 08:50 | Outpatient (BNVA) | payer BC, MEDICAID, SELFPAY | PROVIDERS: PCP Nurse Practitioner; Visit Provider Podiatrist Foot & Ankle Surgery | DX: L60.3 Nail dystrophy (principal) | CPT/HCPCS: 36415; 80053 ==

== ENCOUNTER 2024-05-20 10:27 | Outpatient (CLI) | payer BC, MEDICAID, SELFPAY ==
--- NOTE | 2024-05-20 10:37 | US_ITS ---
WS: [id number] ULTRASOUND BREAST RIGHT TECHNIQUE: Ultrasound right breast focused area of concern. CLINICAL INFORMATION: BREAST LUMP COMPARISON: None. FINDINGS: Ultrasound RIGHT breast patient directed 12 o'clock position 1 cm from the nipple. Normal underlying parenchymal tissue. No cystic or solid lesions. No suspicious findings in the area of concern. US/US breast RT limited* [id number] IMPRESSION: BI-RADS 2 benign Recommend annual screening mammography age 40
== END 2024-05-20 10:28 | disposition home or self-care (01) ==
LOC: RAD 10:29
PROVIDERS: PCP Nurse Practitioner; Visit Provider Family Medicine
DX: N63.15 Unspecified lump in the right breast, overlapping quadrants (principal)
CPT/HCPCS: 76642